=== PATIENT | male | born 1960 | race Caucasian/White ===

== ENCOUNTER 2020-06-12 18:28 | Inpatient (IN) | payer OTHER ==
[2020-06-12] MEDS ORDERED: SODIUM CHLORIDE 0.9% 1,000 ML IV STA ×2 (18:53→19:50)
--- NOTE | 2020-06-12 19:05 | ED ---
SOB HPI - General Chief Complaint: Shortness of Breath Stated Complaint: LILIA Time Seen by Provider: 06/12/20 18:41 Source: patient, RN notes reviewed Mode of arrival: ambulatory Limitations: no limitations - History of Present Illness Initial Comments: This is a 60-year-old male who is a smoker who was sent in by his doctor for evaluation for a possible right lung mass. He apparently had a CAT scan done in November of this year that showed evidence of a possible right lung mass. He was seen by his doctor last month and instructed to come in but now presents. He complains shortness breath exertional dyspnea sometime with a cough no overt fevers chills or sweats he does use an inhaler/nebulizer times. He states he had multiple family issues a Different getting worked up and also the patient didn't make interrupted things. MD Complaint: shortness of breath - Related Data Allergies Allergy/AdvReac Type Severity Reaction Status Date / Time No Known Allergies Allergy Verified 06/12/20 18:35 Review of Systems ROS Statement: Those systems with pertinent positive or pertinent negative responses have been documented in the HPI. ROS Other: All systems not noted in ROS Statement are negative. Past Medical History Past Medical History: Hyperlipidemia, Hypertension Additional Past Medical History / Comment(s): DDD History of Any Multi-Drug Resistant Organisms: None Reported Past Surgical History: Orthopedic Surgery Past Psychological History: No Psychological Hx Reported Smoking Status: Current every day smoker Past Alcohol Use History: None Reported Past Drug Use History: None Reported General Exam - General Exam Comments Initial Comments: This is a well-developed asthenic appearing male who is awake alert oriented 3 Limitations: no limitations General appearance: alert Head exam: Present: atraumatic, normocephalic, normal inspection Eye exam: Present: normal appearance, PERRL, EOMI. Absent: scleral icterus, conjunctival injection, periorbital swelling ENT exam: Present: normal exam, mucous membranes moist Neck exam: Present: normal inspection, other (No stridor JVD or bruits). Absent: tenderness, meningismus, lymphadenopathy Respiratory exam: Present: wheezes, decreased breath sounds (Decreased breath sounds especially on the right). Absent: respiratory distress, rales, rhonchi, stridor Cardiovascular Exam: Present: normal rhythm, tachycardia, normal heart sounds. Absent: systolic murmur, diastolic murmur, rubs, gallop, clicks GI/Abdominal exam: Present: soft, normal bowel sounds. Absent: distended, tenderness, guarding, rebound, rigid Extremities exam: Present: normal inspection, full ROM, normal capillary refill. Absent: tenderness, pedal edema, joint swelling, calf tenderness Back exam: Present: normal inspection Neurological exam: Present: alert, oriented X3, CN II-XII intact Psychiatric exam: Present: normal affect, normal mood Skin exam: Present: warm, dry, intact, normal color. Absent: rash Course Vital Signs 06/12/20 06/12/20 06/12/20 18:30 18:51 18:57 Temperature 98.1 F Pulse Rate 110 H 107 H Respiratory 18 20 20 Rate Blood Pressure 139/85 131/94 O2 Sat by Pulse 94 L 95 Oximetry Medical Decision Making - Medical Decision Making I did discuss findings with patient will be admitted case is discussed with Dr. Graves service pulmonary medicine will be consulted. Patient is not any fevers chills or sweats he does have a mildly elevated white blood cell count likely reactive. - Lab Data Result diagrams: 06/12/20 18:56 06/12/20 18:56 Lab Results 06/12/20 06/12/20 Range/Units 18:56 18:56 WBC 13.3 H (3.8-10.6) k/uL RBC 5.01 (4.30-5.90) m/uL Hgb 15.5 (13.0-17.5) gm/dL Hct 49.0 (39.0-53.0) % MCV 97.6 (80.0-100.0) fL MCH 30.9 (25.0-35.0) pg MCHC 31.7 (31.0-37.0) g/dL RDW 12.8 (11.5-15.5) % Plt Count 534 H (150-450) k/uL Neutrophils % 72 % Lymphocytes % 18 % Monocytes % 5 % Eosinophils % 3 % Basophils % 1 % Neutrophils # 9.6 H (1.3-7.7) k/uL Lymphocytes # 2.3 (1.0-4.8) k/uL Monocytes # 0.7 (0-1.0) k/uL Eosinophils # 0.5 (0-0.7) k/uL Basophils # 0.1 (0-0.2) k/uL Sodium 132 L (137-145) mmol/L Potassium 3.4 L (3.5-5.1) mmol/L Chloride 97 L (98-107) mmol/L Carbon Dioxide 21 L (22-30) mmol/L Anion Gap 14 mmol/L BUN 4 L (9-20) mg/dL Creatinine 0.55 L (0.66-1.25) mg/dL Est GFR (CKD-EPI)AfAm >90 (>60 ml/min/1.73 sqM) Est GFR (CKD-EPI)NonAf >90 (>60 ml/min/1.73 sqM) Glucose 132 H (74-99) mg/dL Calcium 9.5 (8.4-10.2) mg/dL Magnesium 2.1 (1.6-2.3) mg/dL Total Bilirubin 0.3 (0.2-1.3) mg/dL AST 35 (17-59) U/L ALT 13 (4-49) U/L Alkaline Phosphatase 106 (38-126) U/L Creatine Kinase 33 L (55-170) U/L Total Protein 6.8 (6.3-8.2) g/dL Albumin 3.6 (3.5-5.0) g/dL - EKG Data -: EKG Interpreted by Me EKG shows normal: sinus rhythm EKG Comments: Sinus rhythm of 97 132 QRS duration 148 QT since QTC 388/492 by atrial enlargement right bundle- branch block left anterior fascicular block pattern - Radiology Data Radiology results: image reviewed (I did review the imaging evidence of right hilar mass.) Disposition 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
[2020-06-12 19:24] LABS: Basophils # (A) 0.1 k/uL (0-0.2); Basophils % (A) 1 %; Eosinophils # (A) 0.5 k/uL (0-0.7); Eosinophils % (A) 3 %; HGB 15.5 gm/dL (13.0-17.5); Lymphocytes # (A) 2.3 k/uL (1.0-4.8); Lymphocytes % (A) 18 %; MCH 30.9 pg (25.0-35.0); MCHC 31.7 g/dL (31.0-37.0); MCV 97.6 fL (80.0-100.0); Mean Platelet Volume 6.8; Monocytes # (A) 0.7 k/uL (0-1.0); Monocytes % (A) 5 %; Neutrophils # (A) 9.6 k/uL (1.3-7.7); Neutrophils % (A) 72 %; Platelet Count 534 k/uL (150-450); RBC 5.01 m/uL (4.30-5.90); RDW 12.8 % (11.5-15.5); WBC 13.3 k/uL (3.8-10.6)
--- NOTE | 2020-06-12 19:32 | XR ---
EXAMINATION TYPE: XR chest 2V DATE OF EXAM: 06/12/2020 COMPARISON: None INDICATION: Difficulty breathing TECHNIQUE: Frontal and lateral views of the chest are obtained. FINDINGS: The heart size is normal. The pulmonary vasculature is normal. No suspicious peripheral consolidations are evident. There may be some infiltrate in the right upper lobe and suprahilar region. However, this could be related to mass as well as infection. There is a right suprahilar and mediastinal mass with extension towards the right apex. Underlying ma ss is suspected. Additional workup is recommended. IMPRESSION: 1. Findings suggestive for a right superior mediastinal mass. Additional workup with contrast CT is r ecommended.
[2020-06-12 19:33] LABS: ALT 13 U/L (4-49); AST 35 U/L (17-59); African American GFR (CKD) >90 (>60 ml/min/1.73 sqM); Albumin 3.6 g/dL (3.5-5.0); Alkaline Phosphatase 106 U/L (38-126); Anion Gap 14 mmol/L; Blood Urea Nitrogen 4 mg/dL (9-20); Calcium 9.5 mg/dL (8.4-10.2); Carbon Dioxide 21 mmol/L (22-30); Chloride 97 mmol/L (98-107); Creatine Kinase 33 U/L (55-170); Glucose 132 mg/dL (74-99); Magnesium 2.1 mg/dL (1.6-2.3); Non-African American GFR(CKD) >90 (>60 ml/min/1.73 sqM); Potassium 3.4 mmol/L (3.5-5.1); Sodium 132 mmol/L (137-145); Total Bilirubin 0.3 mg/dL (0.2-1.3); Total Protein 6.8 g/dL (6.3-8.2)
[2020-06-12 19:37] LABS: Partial Thromboplastin Time 27.2 sec (22.0-30.0); Prothrombin Time 10.5 sec (9.0-12.0)
[2020-06-12] MEDS ORDERED: NICOTINE 21MG/24HR PATCH TRANSDERM STA (19:37)
[2020-06-12 19:44] LABS: D-Dimer 0.88 mg/L FEU (<0.60)
--- NOTE | 2020-06-12 20:28 | CT ---
CT CHEST FOR PULMONARY EMBOLISM. EXAMINATION TYPE: CT angio chest DATE OF EXAM: 06/12/2020 INDICATION: Elevated d-dimer and difficulty breathing. CT DLP: 411.5 mGycm, Automated exposure control for dose reduction was used. CONTRAST: Patient injected with 60ml mL of Isovue 370. COMPARISON: Chest x-ray 06/12/2020 TECHNIQUE: CT of the chest is performed on a spiral scan at 2 mm thick sections. Study is performed with intravenous contrast timed for evaluation for pulmonary embolism. This will limit additional po rtions of the evaluation. 3-D MIP images reconstructed by the technologist are reviewed on the compu ter in the coronal and sagittal planes. FINDINGS: No persistent filling defects are evident to suggest an acute pulmonary embolism. No mediastinal or hilar adenopathy enlarged by CT criteria is evident. The ascending aorta diameter at the level of the main pulmonary artery is 3.2 cm. The main pulmonary artery diameter at the bifur cation is 2.9 cm. There is a mass along the superior right mediastinal border with extension into the mediastinum. This is causing at least partial obstruction of the airway. A patent airway however cannot be traced on t hese images into the right lung through the right main bronchus. Complete atelectasis of the right evin ng however is not evident at this time. Mass measurement is difficult given atelectasis and difficult y from the mediastinum. Best estimate on the coronal plane images is 11.6 x [address] sections through the upper abdomen are unremarkable. IMPRESSIONS: 1. Large mediastinal mass appears to be obstructing the right main bronchus and may have partial enca sement of the right main pulmonary artery. 2. No acute pulmonary embolism.
[2020-06-12] MEDS: SODIUM CHLORIDE 0.9% 1,000 ML IV SCH (20:35)
[2020-06-12] MEDS: IPRATROPIUM-ALBUTEROL 3 ML NEB INHALATION SCH (20:42)
[2020-06-12] MEDS ORDERED: POTASSIUM CHLORIDE ER 20 MEQ TAB.ER PO STA (23:13)
[2020-06-13] MEDS: IPRATROPIUM-ALBUTEROL 3 ML NEB INHALATION SCH ×7 (03:49→23:09)
[2020-06-13] MEDS: SODIUM CHLORIDE 0.9% 1,000 ML IV SCH ×2 (05:17→16:15)
[2020-06-13 08:09] LABS: Basophils # (A) 0.1 k/uL (0-0.2); Basophils % (A) 1 %; Eosinophils # (A) 0.4 k/uL (0-0.7); Eosinophils % (A) 4 %; HGB 15.2 gm/dL (13.0-17.5); Hypochromasia Slight; Lymphocytes # (A) 1.7 k/uL (1.0-4.8); Lymphocytes % (A) 14 %; MCH 32.3 pg (25.0-35.0); MCHC 32.4 g/dL (31.0-37.0); MCV 99.9 fL (80.0-100.0); Mean Platelet Volume 6.5; Monocytes # (A) 0.6 k/uL (0-1.0); Monocytes % (A) 5 %; Neutrophils % (A) 76 %; Platelet Count 511 k/uL (150-450); RDW 12.7 % (11.5-15.5); WBC 11.8 k/uL (3.8-10.6)
[2020-06-13 08:15] LABS: African American GFR (CKD) >90 (>60 ml/min/1.73 sqM); Anion Gap 6 mmol/L; Blood Urea Nitrogen 3 mg/dL (9-20); Calcium 8.8 mg/dL (8.4-10.2); Carbon Dioxide 25 mmol/L (22-30); Chloride 105 mmol/L (98-107); Glucose 107 mg/dL (74-99); Non-African American GFR(CKD) >90 (>60 ml/min/1.73 sqM); Potassium 4.5 mmol/L (3.5-5.1); Sodium 136 mmol/L (137-145)
--- NOTE | 2020-06-13 11:03 | P.CNPUL ---
History of Present Illness Consult date: 06/12/20 Reason for consult: lung mass, abnormal CXR/CT, other (Hemoptysis) History of present illness: This is a 60-year-old male who is a smoker who was sent in by his doctor for evaluation for a possible right lung mass. He is a chronic smoker. He a pparently had a CAT scan done in November of this year that showed evidence of a possible right lung mass. He was seen by his doctor last month and instructed to come. The patient did not FU and he did not seek any medical workup back then. He subsequnetly had some hemoptysis and he also complained exertional dyspnea. He has no fevers chills or sweats or sweats. No exposure to tuberculosis. He has no significant constitutional symptoms. No reported chest pain. A CT of the chest was done in the ED and it showed a RUL mass, the dimensions are hard to get as the there is also evidence of RUL atelectasis (partial). The mass in th RUL/suprahilar area is extending to the right main stem bronchus without causing any atelectasis of the right middle and the right lower lobes. The RUL upper lobe bronchus seems to be occluded with the mass. The mass is causing partial encasement if the pulmonary artery. There is no mediastinal or hilar adenopathy. Review of Systems Constitutional: Denies chills, Denies fever Eyes: denies as per HPI, denies blurred vision, denies bulging eye, denies decreased vision, denies diplopia, denies discharge, denies dry eye, denies irritation, denies itching, denies pain, denies photophobia, denies loss of peripheral vision, denies loss of vision, denies tunnel vision/blind spots Ears: deny: decreased hearing, ear discharge, earache, tinnitus Ears, nose, mouth and throat: Reports as per HPI Breasts: absent: as per HPI, gynecomastia Cardiovascular: Reports as per HPI, Reports dyspnea on exertion Respiratory: Reports cough, Reports dyspnea, Reports hemoptysis Gastrointestinal: Reports as per HPI Genitourinary: Reports as per HPI Musculoskeletal: Reports as per HPI Musculoskeletal: absent: ankle pain, ankle stiffness, ankle swelling Integumentary: Reports as per HPI Neurological: Reports as per HPI Psychiatric: Reports as per HPI Endocrine: Reports as per HPI Hematologic/Lymphatic: Reports as per HPI Allergic/Immunologic: Reports as per HPI Past Medical History Past Medical History: Hyperlipidemia, Hypertension Additional Past Medical History / Comment(s): DDD History of Any Multi-Drug Resistant Organisms: None Reported Past Surgical History: Orthopedic Surgery Past Psychological History: No Psychological Hx Reported Smoking Status: Current every day smoker Past Alcohol Use History: None Reported Past Drug Use History: None Reported - Past Family History Father Family Medical History: Diabetes Mellitus Mother Family Medical History: CVA/TIA, Diabetes Mellitus Additional Family Medical History / Comment(s): at 82 Brother(s) Family Medical History: Coronary Artery Disease (CAD), Myocardial Infarction (AR) Additional Family Medical History / Comment(s): 2015 Medications and Allergies Home Medications Medication Instructions Recorded Confirmed Type Albuterol Nebulized [Ventolin 2.5 mg INHALATION RT-QID PRN 06/12/20 06/12/20 History Nebulized] Hydrocodone/Acetaminophen [Hilton 1 tab PO Q6H PRN 06/12/20 06/12/20 History 10-325] Ibuprofen/Pseudoephedrine HCl 1 tab PO Q5H PRN 06/12/20 06/12/20 History [Advil Cold & Sinus Caplet] Omeprazole 20 mg PO DAILY 06/12/20 06/12/20 History Allergies Allergy/AdvReac Type Severity Reaction Status Date / Time No Known Allergies Allergy Verified 06/12/20 19:45 Physical Exam Vitals: Vital Signs Temp Pulse Resp BP Pulse Ox 06/12/20 20:44 97 06/12/20 20:43 80 14 06/12/20 20:33 98.5 F 85 18 116/78 96 06/12/20 18:57 107 H 20 131/94 95 06/12/20 18:51 20 06/12/20 18:30 98.1 F 110 H 18 139/85 94 L Intake and Output 06/12/20 06/12/20 06/12/20 06:59 14:59 22:59 Other: Weight 82.554 kg Patient is lying in the bed appears to be in acute distress due to pain, awake alert and oriented. HEENT: Normocephalic. Neck is supple. Pupils reactive. Nostrils clear. Oral cavity is moist. Ears reveal no drainage. There is some skin thickening and scarring along the left lateral chest area at the site of a previous radiation therapy. No palpable masses. Neck reveals no JVD, carotid bruits, or thyromegaly. CHEST EXAMINATION: Trachea is central. aymmetrical expansion and the patient has few scattered rhonchi CARDIAC: Normal S1, S2 with no gallops. No murmurs ABDOMEN: Soft. Non tender. Bowel sounds present. Distended. No abdominal bruits. Extremities: There is swelling of the right upper extremity compared to the left. There is some limited digital clubbing. No cyanosis. No edema. Neurologically awake, alert, oriented x2-3 with well-coordinated movements. No focal deficits noted Skin: No rash or skin lesions. Psychiatric: Coperative. Could not be sensory completely Musculoskeletal: No joint swelling or deformity. Normal range of motion. Results - Laboratory Findings CBC and BMP: 06/13/20 07:41 06/13/20 07:41 PT/INR, D-dimer PT 10.5 sec (9.0-12.0) 06/12/20 18:56 INR 1.0 (<1.2) 06/12/20 18:56 D-Dimer 0.88 mg/L FEU (<0.60) H 06/12/20 18:56 Abnormal lab findings: Abnormal Labs 06/12/20 06/12/20 06/12/20 18:56 18:56 18:56 WBC 13.3 H Plt Count 534 H Neutrophils # 9.6 H D-Dimer 0.88 H Sodium 132 L Potassium 3.4 L Chloride 97 L Carbon Dioxide 21 L BUN 4 L Creatinine 0.55 L Glucose 132 H Plasma Lactic Acid John Creatine Kinase 33 L 06/12/20 18:56 WBC Plt Count Neutrophils # D-Dimer Sodium Potassium Chloride Carbon Dioxide BUN Creatinine Glucose Plasma Lactic Acid John 3.8 H* Creatine Kinase - Diagnostic Findings Chest x-ray: image reviewed CT scan - chest: image reviewed Assessment and Plan Plan: 1 Right suprahilar/ RUL mass causing obstruction of the RUL bronchus and partial atelectasis of the right upper lobe. 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 Plan Discussed the findings with the patient. Obviously, the patient will need to have a bronchoscopy for an airway inspection and biopsy of the RUL mass for a definitive diagnosis. The procedure was explained to the patient and the patient will be kept NPO after midnight and will be scheduled to have the bronchoscopy in am. Continue IVF and monitor the lactic acid level. Will follow
[2020-06-13] MEDS ORDERED: ROCURONIUM BROMIDE 10 MG/ML 5 ML VIAL IV ONE (14:09)
[2020-06-13] MEDS ORDERED: KETAMINE 10 MG/ML 20 ML VIAL ONE (14:09)
[2020-06-13] MEDS ORDERED: PROPOFOL 10 MG/ML 20 ML VIAL IV ONE (14:09)
[2020-06-13] MEDS ORDERED: MIDAZOLAM 2 MG/2 ML VIAL ONE (14:09)
[2020-06-13] MEDS ORDERED: GLYCOPYRROLATE 0.2 MG/ML 2 ML VIAL ONE (14:09)
[2020-06-13] MEDS ORDERED: fentaNYL (PF) 50 MCG/ML 2 ML AMP ONE (14:09)
[2020-06-13] MEDS ORDERED: IV FLUID CONTINUATION 1,000 ML IV ONE ×2 (14:11)
[2020-06-13] MEDS ORDERED: LIDOCAINE 2% INJ 20 MG/ML INTRATRACH ONE (14:43)
[2020-06-13] MEDS ORDERED: SODIUM CHLORIDE 0.9% 500 ML 500 ML IV ONE (14:46)
--- NOTE | 2020-06-13 14:58 | P.PN ---
Subjective Progress Note Date: 06/13/20 On today's evaluation of 06/13/2020, the patient's, comfortable likely distress. The patient has no specific complaints. No further episodes of hemoptysis. He is nothing by mouth after midnight and the patient is going to have the bronchoscopy today. I extended to the procedure again. I reviewed the CAT scan images. Hemodynamically stable. Limited cough. No significant sputum production. No chest pain. No symptoms of shortness of breath. Objective - Vital Signs Vital signs: Vital Signs Temp 99.9 F H 06/13/20 13:23 Pulse 105 H 06/13/20 13:23 Resp 20 06/13/20 13:23 BP 130/90 06/13/20 13:23 Pulse Ox 92 L 06/13/20 13:23 Intake & Output 06/12/20 06/13/20 06/13/20 18:59 06:59 18:59 Intake Total 550 Balance 550 Weight 82.554 kg 82.554 kg Intake: IV 550 Other: Voiding Method Toilet Toilet - Exam The patient appeared well nourished and normally developed. Vital signs as documented. Head exam is unremarkable. No scleral icterus or corneal arcus noted. Neck is without jugular venous distension, thyromegaly, or carotid bruits. The patient has very poor dentition. Mucous membranes are moist. Carotid upstrokes are brisk bilaterally. Lungs are diminished in the lung bases bilaterally more so on the right compared to left. Few scattered expiratory wheezes also appreciated.. Cardiac exam reveals the PMI to be normally sized and situated. Rhythm is regular. First and second heart sounds normal. No murmurs, rubs or gallops. Abdominal exam reveals normal bowel sounds, no masses, no organomegaly and no aortic enlargement. Extremities are nonedematous and both femoral and pedal pulses are normal.Examination of the skin revealed no evidence of significant rashes, suspicious appearing nevi or other concerning lesions. Neurologically the patient is awake and alert and there is no focal neurological deficit. - Labs CBC & Chem 7: 06/13/20 07:41 06/13/20 07:41 Labs: Abnormal Lab Results - Last 24 Hours (Table) 06/12/20 06/12/20 06/12/20 Range/Units 18:56 18:56 18:56 WBC 13.3 H (3.8-10.6) k/uL Plt Count 534 H (150-450) k/uL Neutrophils # 9.6 H (1.3-7.7) k/uL D-Dimer 0.88 H (<0.60) mg/L FEU Sodium 132 L (137-145) mmol/L Potassium 3.4 L (3.5-5.1) mmol/L Chloride 97 L (98-107) mmol/L Carbon Dioxide 21 L (22-30) mmol/L BUN 4 L (9-20) mg/dL Creatinine 0.55 L (0.66-1.25) mg/dL Glucose 132 H (74-99) mg/dL Plasma Lactic Acid John (0.7-2.0) mmol/L Creatine Kinase 33 L (55-170) U/L 06/12/20 06/12/20 06/13/20 Range/Units 18:56 22:31 07:41 WBC 11.8 H (3.8-10.6) k/uL Plt Count 511 H (150-450) k/uL Neutrophils # 9.0 H (1.3-7.7) k/uL D-Dimer (<0.60) mg/L FEU Sodium (137-145) mmol/L Potassium (3.5-5.1) mmol/L Chloride (98-107) mmol/L Carbon Dioxide (22-30) mmol/L BUN (9-20) mg/dL Creatinine (0.66-1.25) mg/dL Glucose (74-99) mg/dL Plasma Lactic Acid John 3.8 H* 2.3 H* (0.7-2.0) mmol/L Creatine Kinase (55-170) U/L 06/13/20 Range/Units 07:41 WBC (3.8-10.6) k/uL Plt Count (150-450) k/uL Neutrophils # (1.3-7.7) k/uL D-Dimer (<0.60) mg/L FEU Sodium 136 L (137-145) mmol/L Potassium (3.5-5.1) mmol/L Chloride (98-107) mmol/L Carbon Dioxide (22-30) mmol/L BUN 3 L (9-20) mg/dL Creatinine 0.53 L (0.66-1.25) mg/dL Glucose 107 H (74-99) mg/dL Plasma Lactic Acid John (0.7-2.0) mmol/L Creatine Kinase (55-170) U/L Assessment and Plan Plan: 1 Right suprahilar/ RUL mass causing obstruction of the RUL bronchus and partial atelectasis of the right upper lobe. 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 Plan Proceed with bronchoscopy, airway inspection and endobronchial biopsies. Consult oncology. Consult radiation oncology.. Further recommendations are to follow based on the results of the biopsy.
--- NOTE | 2020-06-13 15:04 | P.PCN ---
Date of Procedure: 06/13/20 Preoperative Diagnosis: Right upper lobe/suprahilar mass Postoperative Diagnosis: Right upper lobe mass causing complete obstruction of the right upper lobe bronchus and invading the right mainstem bronchus causing some 80-90% narrowing of the right mainstem bronchus. Procedure(s) Performed: Flexible bronchoscopy, endobronchial biopsies, endobronchial debulking of the right mainstem tumor Anesthesia: ASHLEIGH Surgeon: Kermit Sandoval Estimated Blood Loss (ml): 10 Pathology: other Condition: stable Disposition: floor Operative Findings: This procedure was done in the endoscopy suite. Initially the procedure was going to be done under conscious sedation. Nevertheless, I decided to proceed with intubation and general anesthesia to secure an airway as I suspected that we are going to encounter some oxygen desaturation at time of this procedure. As such, the patient was induced and following that intubated and placed on mechanical ventilator by anesthesia group. The patient was intubated by #7.5 orotracheal tube. An adapter was attached to the orotracheal tube and following that the flexible bronchoscope was reduced into the orotracheal tube into the left lower trachea. There was some of the secretions in the distal trachea that were minimal and there were no blood clots. Sanaz was sharp in the midline. The bronchoscope was then moved to the right side and immediately a large necrotic tumor was seen to cause more than 95% obstruction of the distal right mainstem bronchus. Origin of the tumor was most likely the right upper lobe as the right upper lobe bronchus could not be identified. There was a slight opening in the medial wall of the right mainstem bronchus and I was able to pass the bronchoscope into the distal bronchus intermedius and I was able to visualize the right upper lobe and the right lower lobe. There was some purulent secretions distally which I was able to suction out without any major difficulties. At this point, using a forceps, multiple endobronchial biopsies of the right mainstem bronchus tumor was done. At the completion of the procedure, multiple pieces the tumor was debulked and I was able to achieve at least a 20-25% patency of the right mainstem bronchus. The airway still was significantly narrowed but endobronchial tumor. He is in remission the left side including left mainstem bronchus and left upper lobe and left lower bronchi was within normal limits. At this point, therapeutic it was suctioning was done and the bronchoscope was removedand the bleeding was encountered. The tumor surface was vascular and amount of bleeding from the tumor surface with minimal at this point in time. The patient was left for anesthesia to be extubated and transferred back to recovery in stable condition. Biopsies will be sent for analysis. Meanwhile, I'm going to put an immediate consultation for medical o ncology and radiation oncology regarding the findings and the patient may benefit from immediate radiation therapy due to impending right mainstem obstruction due to an endobronchial tumor in the right upper lobe.
[2020-06-13] MEDS ORDERED: ALBUTEROL INHALER 60 PUFF/8 GM INHALER (MHU) INHALATION ONE (15:18)
[2020-06-13] MEDS ORDERED: LACTATED RINGERS 1,000 ML IV ONE (15:26)
[2020-06-13] MEDS: ACETAMINOPHEN TAB 325 MG TAB PO PRN (16:19)
[2020-06-13] MEDS: HYDROcodone/APAP 10-325MG 1 EACH TAB PO PRN (18:29)
--- NOTE | 2020-06-13 23:24 | P.HPIM ---
History of Present Illness H&P Date: 06/13/20 Chief Complaint: Shortness of breath Patient is a 60-year-old male with a known history of smoking, degenerative disc disease, hyperlipidemia and history of marijuana use as well as daily alcohol use came to ER with the complaints of shortness of breath, exertional dyspnea and cough which is getting for the past few months. Patient. Blood-tinged sputum few days back. Patient contacted his primary care physician who recommended him to go to ER. Patient was being worked up for lung mass sometime in November where he had a CAT scan done showed evidence of possible right lung mass. Due to COVID-19 management patient states he is unable to follow-up with his physician and presented to ER due to worsening symptoms. Denied any complaints of chest pain. No nausea vomiting or abdominal pain. Patient states that she did have decreased appetite. CTA chest in the ER showed large mediastinal mass appears to be obstructing the right main bronchus and may have partial encasement of the right main pulmonary artery. No acute pulmonary embolism. Chest x-ray showed findings suggestive for a right superior mediastinal mass. EKG showed normal sinus rhythm. Laboratory data showed WBC 13.3, hemoglobin 14.4 and platelets 534 D-dimer is 0.88 Sodium 132, potassium 3.4, chloride 97 and bicarb is 21 BUN 4 and creatinine 0.55 lactic acid 3.8 on admission proBNP 41 Troponin x1- Coronavirus PCR negative. Past Medical History: Hyperlipidemia Additional Past Medical History / Comment(s): DDD neck, carpal tunnel History of Any Multi-Drug Resistant Organisms: None Reported Past Surgical History: Orthopedic Surgery Additional Past Surgical History / Comment(s): left ankle surgery 30 years ago. Past Anesthesia/Blood Transfusion Reactions: No Reported Reaction Past Psychological History: No Psychological Hx Reported Smoking Status: Current every day smoker Past Alcohol Use History: Abuse, Daily Additional Past Alcohol Use History / Comment(s): drinks 6-8beer daily or 3-4 vodka mixed drinks. depends on the day. smoke 1 pack of cigarettes day. cut back from 2 packs day Past Drug Use History: Marijuana Additional Drug Use History / Comment(s): past use of marijuana This is a 60-year-old male who is a smoker who was sent in by his doctor for evaluation for a possible right lung mass. He apparently had a CAT scan done in November of this year that showed evidence of a possible right lung mass. He was seen by his doctor last month and instructed to come in but now presents. He complains shortness breath exertional dyspnea sometime with a cough no overt fevers chills or sweats he does use an inhaler/nebulizer times. He states he had multiple family issues a Different getting worked up and also the patient d idn't make interrupted things. MD Complaint: shortness of breath Review of Systems Constitutional: Patient denies any fever or chills . Generalized weakness and fatigue. Loss of appetite.. Abdomen: Patient denied nausea vomiting and diarrhea and abdominal pain. Cardiovascular: Patient denies any chest pain or short of breath no palpitations. Respiratory: Cough with whitish sputum production. Positive shortness of breath Neurologic: Patient denied any numbness or tingling headache. Musculoskeletal: Patient denies any complaints of joint swelling or deformity. Skin: Negative Psychiatric: Negative Endocrine: No heat or cold intolerance. No recent weight gain. Genitourinary: No dysuria or hematuria. All other 14 point ROS negative except the above Past Medical History Past Medical History: Hyperlipidemia Additional Past Medical History / Comment(s): DDD neck, carpal tunnel History of Any Multi-Drug Resistant Organisms: None Reported Past Surgical History: Orthopedic Surgery Additional Past Surgical History / Comment(s): left ankle surgery 30 years ago. Past Anesthesia/Blood Transfusion Reactions: No Reported Reaction Past Psychological History: No Psychological Hx Reported Smoking Status: Current every day smoker Past Alcohol Use History: Abuse, Daily Additional Past Alcohol Use History / Comment(s): drinks 6-8beer daily or 3-4 vodka mixed drinks. depends on the day. smoke 1 pack of cigarettes day. cut back from 2 packs day Past Drug Use History: Marijuana Additional Drug Use History / Comment(s): past use of marijuana - Past Family History Father Family Medical History: Diabetes Mellitus Mother Family Medical History: CVA/TIA, Diabetes Mellitus Additional Family Medical History / Comment(s): at 82 Brother(s) Family Medical History: Coronary Artery Disease (CAD), Myocardial Infarction ([place]) Additional Family Medical History / Comment(s): 2015 Medications and Allergies Home Medications Medication Instructions Recorded Confirmed Type Albuterol Nebulized [Ventolin 2.5 mg INHALATION RT-QID PRN 06/12/20 06/12/20 History Nebulized] Hydrocodone/Acetaminophen [[facility] 1 tab PO Q6H PRN 06/12/20 06/12/20 History 10-325] Ibuprofen/Pseudoephedrine HCl 1 tab PO Q5H PRN 06/12/20 06/12/20 History [Advil Cold & Sinus Caplet] Omeprazole 20 mg PO DAILY 06/12/20 06/12/20 History Allergies Allergy/AdvReac Type Severity Reaction Status Date / Time No Known Allergies Allergy Verified 06/12/20 19:45 Physical Exam Vitals: Vital Signs Temp Pulse Pulse Resp BP BP Pulse Ox 06/13/20 05:31 99.9 F H 96 18 132/63 94 L 06/13/20 04:00 84 06/13/20 03:49 88 06/12/20 21:51 97.3 F L 86 18 127/83 06/12/20 20:51 81 15 06/12/20 20:44 97 06/12/20 20:43 80 14 06/12/20 20:33 98.5 F 85 18 116/78 96 06/12/20 18:57 107 H 20 131/94 95 06/12/20 18:51 20 06/12/20 18:30 98.1 F 110 H 18 139/85 94 L Intake and Output 06/12/20 06/13/20 06/13/20 22:59 06:59 14:59 Other: Voiding Method Toilet Toilet Weight 82.554 kg PHYSICAL EXAMINATION: Patient is lying in the bed comfortably, no acute distress, awake alert and oriented.. HEENT: Normocephalic. Neck is supple. Pupils reactive. Nostrils clear. Oral cavity is moist. Ears reveal no drainage. Neck reveals no JVD, carotid bruits, or thyromegaly. CHEST EXAMINATION: Trachea is central. Symmetrical expansion. Lung reyez clear to auscultation and percussion. CARDIAC: Normal S1, S2 with no gallops. No murmurs ABDOMEN: Soft. Bowel sounds normal. No organomegaly. No abdominal bruits. Extremities: reveal no edema. No clubbing or cyanosis Neurologically awake, alert, oriented x3 with well-coordinated movements. No focal deficits noted Skin: No rash or skin lesions. Psychiatric: Coperative. Nonsuicidal Musculoskeletal: No joint swelling or deformity. Normal range of motion. Results CBC & Chem 7: 06/13/20 07:41 06/13/20 07:41 Labs: Abnormal Lab Results - Last 24 Hours (Table) 06/12/20 06/12/20 06/12/20 Range/Units 18:56 18:56 18:56 WBC 13.3 H (3.8-10.6) k/uL Plt Count 534 H (150-450) k/uL Neutrophils # 9.6 H (1.3-7.7) k/uL D-Dimer 0.88 H (<0.60) mg/L FEU Sodium 132 L (137-145) mmol/L Potassium 3.4 L (3.5-5.1) mmol/L Chloride 97 L (98-107) mmol/L Carbon Dioxide 21 L (22-30) mmol/L BUN 4 L (9-20) mg/dL Creatinine 0.55 L (0.66-1.25) mg/dL Glucose 132 H (74-99) mg/dL Plasma Lactic Acid John (0.7-2.0) mmol/L Creatine Kinase 33 L (55-170) U/L 06/12/20 06/12/20 06/13/20 Range/Units 18:56 22:31 07:41 WBC 11.8 H (3.8-10.6) k/uL Plt Count 511 H (150-450) k/uL Neutrophils # 9.0 H (1.3-7.7) k/uL D-Dimer (<0.60) mg/L FEU Sodium (137-145) mmol/L Potassium (3.5-5.1) mmol/L Chloride (98-107) mmol/L Carbon Dioxide (22-30) mmol/L BUN (9-20) mg/dL Creatinine (0.66-1.25) mg/dL Glucose (74-99) mg/dL Plasma Lactic Acid John 3.8 H* 2.3 H* (0.7-2.0) mmol/L Creatine Kinase (55-170) U/L 06/13/20 Range/Units 07:41 WBC (3.8-10.6) k/uL Plt Count (150-450) k/uL Neutrophils # (1.3-7.7) k/uL D-Dimer (<0.60) mg/L FEU Sodium 136 L (137-145) mmol/L Potassium (3.5-5.1) mmol/L Chloride (98-107) mmol/L Carbon Dioxide (22-30) mmol/L BUN 3 L (9-20) mg/dL Creatinine 0.53 L (0.66-1.25) mg/dL Glucose 107 H (74-99) mg/dL Plasma Lactic Acid John (0.7-2.0) mmol/L Creatine Kinase (55-170) U/L Thrombosis Risk Factor Assmnt - DVT/VTE Prophylaxis DVT/VTE Prophylaxis: Pharmacologic Prophylaxis ordered - Choose All That Apply Any of the Below Risk Factors Present?: Yes Each Factor Represents 1 point: Obesity (BMI >25) Other Risk Factors: Yes Each Risk Factor Represents 2 Points: Age 61-74 years, Malignancy Other congenital or acquired thrombophilia - If yes, enter type in comment: No Thrombosis Risk Factor Assessment Total Risk Factor Score: 5 Thrombosis Risk Factor Assessment Level: High Risk Assessment and Plan Assessment: Lung mass. CT showed large mediastinal mass appears to be obstructing the right main bronchus. Ongoing Nicotine addiction. Hypovolemic hyponatremia Hypokalemia Lactic acidosis Elevated d-dimer level. CTA negative for pulmonary embolism. Daily alcohol use Degenerative disc disease and neck pain Hyperlipidemia History of marijuana use DVT prophylaxis Plan: Patient will be continued breathing treatments and pain management. Pulmonary was consulted and is planning for bronchoscopy and biopsy. Continue with oxygen therapy as needed. Smoking cessation has been counseled extensively. Time with Patient: Greater than 30
[2020-06-13] MEDS: HEPARIN SODIUM,PORCINE 5,000 UNIT/ML 1 ML VIAL SQ SCH (23:49)
[2020-06-14] MEDS: HYDROcodone/APAP 10-325MG 1 EACH TAB PO PRN ×4 (01:47→20:37)
[2020-06-14] MEDS: SODIUM CHLORIDE 0.9% 1,000 ML IV SCH ×2 (01:48→12:04)
[2020-06-14] MEDS: IPRATROPIUM-ALBUTEROL 3 ML NEB INHALATION SCH ×6 (04:11→23:59)
[2020-06-14] MEDS: HEPARIN SODIUM,PORCINE 5,000 UNIT/ML 1 ML VIAL SQ SCH ×2 (07:40→15:22)
[2020-06-14] MEDS: NICOTINE 14MG/24HR PATCH TRANSDERM SCH (09:09)
[2020-06-14] MEDS: PANTOPRAZOLE 40 MG TABLET PO SCH (12:04)
--- NOTE | 2020-06-14 12:50 | P.PN ---
Subjective Progress Note Date: 06/14/20 Principal diagnosis: Right suprahilar/right upper lobe mass causing obstruction of the right upper lobe bronchus and partial atelectasis of the right upper lobe, status post bronchoscopy and endobronchial biopsy This is a 60-year-old male who is a smoker who was sent in by his doctor for evaluation for a possible right lung mass. He is a chronic smoker. He apparently had a CAT scan done in November of this year that showed evidence of a possible right lung mass. He was seen by his doctor last month and instructed to come. The patient did not FU and he did not seek any medical workup back then. He subsequnetly had some hemoptysis and he also complained exertional dyspnea. He has no fevers chills or sweats or sweats. No exposure to tuberculosis. He has no significant constitutional symptoms. No reported chest pain. A CT of the chest was done in the ED and it showed a RUL mass, the dimensions are hard to get as the there is also evidence of RUL atelectasis (partial). The mass in th RUL/suprahilar area is extending to the right main stem bronchus without causing any atelectasis of the right middle and the right lower lobes. The RUL upper lobe bronchus seems to be occluded with the mass. The mass is causing partial encasement if the pulmonary artery. There is no mediastinal or hilar adenopathy. On 06/14/2020 patient seen in follow-up on medical surgical floor. He is awake and alert, in no acute distress, room air pulse ox is 93%, he status post bronchoscopy with biopsies of right upper lobe endobronchial mass. No hemoptysis, recovered well, pathology results are still pending. Vital signs remain stable overnight, COVID 19 was negative, today's labs have been reviewed, showing white blood cell count of 11.8, hemoglobin of 15.2, sodium is 136, the r est of electrolytes were within normal limits, B1 is 30 creatinine 0.53. Repeat plasma lactic acid came down to 1.1, vital signs have been stable, he did have a low-grade fever this morning, and fever in the afternoon yesterday with a temp of 101.3F. Afebrile this morning. Receiving nebulas bronchodilators Objective - Vital Signs Vital signs: Vital Signs Temp 99.0 F 06/14/20 07:00 Pulse 100 06/14/20 11:03 Resp 17 06/14/20 07:00 BP 164/91 06/14/20 07:00 Pulse Ox 93 L 06/14/20 07:00 Intake & Output 06/13/20 06/14/20 06/14/20 18:59 06:59 18:59 Intake Total 650 Balance 650 Weight 82.554 kg Intake: IV 650 Other: Voiding Method Toilet Toilet Toilet # Voids 3 - Exam GENERAL EXAM: Alert, very pleasant on room air, with pulse ox of 93% comfortable in no apparent distress. HEAD: Normocephalic/atraumatic. EYES: Normal reaction of pupils, equal size. Conjunctiva pink, sclera white. NOSE: Clear with pink turbinates. THROAT: No erythema or exudates. NECK: No masses, no JVD, no thyroid enlargement, no adenopathy. CHEST: No chest wall deformity. Symmetrical expansion. LUNGS: Equal air entry with no crackles, wheeze, rhonchi or dullness. CVS: Regular rate and rhythm, normal S1 and S2, no gallops, no murmurs, no rubs ABDOMEN: Soft, nontender. No hepatosplenomegaly, normal bowel sounds, no guarding or rigidity. EXTREMITIES: No clubbing, no edema, no cyanosis, 2+ pulses and upper and lower extremities. MUSCULOSKELETAL: Muscle strength and tone normal. SPINE: No scoliosis or deformity SKIN: No rashes CENTRAL NERVOUS SYSTEM: Alert and oriented -3. No focal deficits, tone is normal in all 4 extremities. PSYCHIATRIC: Alert and oriented -3. Appropriate affect. Intact judgment and insight. - Labs CBC & Chem 7: 06/13/20 07:41 06/13/20 07:41 Assessment and Plan Plan: Assessment: 1 Right suprahilar/ RUL mass causing obstruction of the RUL bronchus and partial atelectasis of the right upper lobe. 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 Plan: Continue current medical treatment, continue breathing treatments, awaiting results of the pathology results. Vital signs are stable, did have a low-grade fever this morning, continue monitoring fever pattern, hemodynamically patient remains stable, radiation oncology was asked to see the patient for possibility of radiation treatment in regards to large right upper lobe mass causing obstruction atelectasis of the right upper lobe, and will consult medical oncology. I performed a history & physical examination of the patient and discussed their management with my nurse practitioner, Seema Lamar. I reviewed the nurse practitioner's note and agree with the documented findings and plan of care. Lung sounds are positive for diminished breath sounds. The findings and the impression was discussed with the patient. I attest to the documentation by the nurse practitioner. Time with Patient: Less than 30
--- NOTE | 2020-06-14 14:31 | P.CONS ---
History of Present Illness - Reason for Consult Consult date: 06/14/20 lung ca/dyspnea Requesting physician: Kermit Sandoval - Chief Complaint dyspnea - History of Present Illness The patient is a 60-year-old male with a history of a recently diagnosed right hilar mass consistent with lung cancer. He presented to the hospital with dyspnea, and near complete right mainstem obstruction. The patient reports his oncologic history began this past November, when his primary care physician ordered a CT scan of his chest. This was performed on December 20 and revealed a 3.2 x 2.4 cm right upper lobe mass with extension into the right upper lobe bronchus. The patient reports that he was recommended to undergo further workup, but that secondary to insurance regions as well as the Covid epidemic he delayed. He finally presented to the emergency room on June 12 secondary to increased dyspnea. He reports that the previous Thursday he had an episode of low volume hemoptysis. He reported significant wheezing and dyspnea on exertion. He underwent a CTA of the chest revealing a right upper lung mass which had increased in size, concern for invasion of the mediastinum with partial airway obstruction within the right upper lobe rhonchus. The patient underwent bronchoscopy on June 13 which revealed 95% obstruction of the right distal mainstem bronchus. This was debulked somewhat, but the patient still had only approximately 20% patency. Following this procedure, the patient reports he is wheezing less. He has continued to cough, but is breathing comfortably on room air. Review of Systems Constitutional: Denies chills, Denies fever Eyes: denies blurred vision Ears: deny: decreased hearing Ears, nose, mouth and throat: Denies headache Cardiovascular: Denies chest pain Respiratory: Reports cough, Reports cough with sputum, Reports dyspnea, Reports hemoptysis Gastrointestinal: Denies belching Integumentary: Denies rash Neurological: Denies aphasia, Denies ataxia Psychiatric: Denies anxiety, Denies confusion Past Medical History Past Medical History: Hyperlipidemia Additional Past Medical History / Comment(s): DDD neck, carpal tunnel History of Any Multi-Drug Resistant Organisms: None Reported Past Surgical History: Orthopedic Surgery Additional Past Surgical History / Comment(s): left ankle surgery 30 years ago. Past Anesthesia/Blood Transfusion Reactions: No Reported Reaction Past Psychological History: No Psychological Hx Reported Smoking Status: Current every day smoker Past Alcohol Use History: Abuse, Daily Additional Past Alcohol Use History / Comment(s): drinks 6-8beer daily or 3-4 vodka mixed drinks. depends on the day. smoke 1 pack of cigarettes day. cut back from 2 packs day Past Drug Use History: Marijuana Additional Drug Use History / Comment(s): past use of marijuana - Past Family History Father Family Medical History: Diabetes Mellitus Mother Family Medical History: CVA/TIA, Diabetes Mellitus Additional Family Medical History / Comment(s): at 82 Brother(s) Family Medical History: Coronary Artery Disease (CAD), Myocardial Infarction ([place]) Additional Family Medical History / Comment(s): 2015 Medications and Allergies Home Medications Medication Instructions Recorded Confirmed Type Albuterol Nebulized [Ventolin 2.5 mg INHALATION RT-QID PRN 06/12/20 06/12/20 History Nebulized] Hydrocodone/Acetaminophen [[facility] 1 tab PO Q6H PRN 06/12/20 06/12/20 History 10-325] Ibuprofen/Pseudoephedrine HCl 1 tab PO Q5H PRN 06/12/20 06/12/20 History [Advil Cold & Sinus Caplet] Omeprazole 20 mg PO DAILY 06/12/20 06/12/20 History Allergies Allergy/AdvReac Type Severity Reaction Status Date / Time No Known Allergies Allergy Verified 06/12/20 19:45 Physical Exam Vitals: Vital Signs Temp Pulse Pulse Pulse Resp BP Pulse Ox 06/14/20 11:03 100 06/14/20 10:53 96 06/14/20 08:22 112 H 06/14/20 08:12 104 H 06/14/20 07:00 99.0 F 103 H 17 164/91 93 L 06/14/20 04:20 17 06/14/20 01:15 99.8 F H 105 H 18 139/84 94 L 06/13/20 23:49 18 06/13/20 20:04 98.9 F 104 H 18 103/72 95 06/13/20 19:49 105 H 18 06/13/20 19:39 107 H 18 06/13/20 19:24 18 06/13/20 18:42 98.4 F 06/13/20 17:38 101 H 137/83 06/13/20 17:28 130/85 06/13/20 17:19 140/88 06/13/20 17:04 106 H 151/83 06/13/20 16:49 102 H 142/82 06/13/20 16:34 104 H 150/81 06/13/20 16:07 101.3 F H 115 H 20 112/78 94 L 06/13/20 15:30 110 H 20 121/79 94 L 06/13/20 15:15 120 H 20 119/80 94 L 06/13/20 15:02 97 F L 115 H 20 149/79 97 Intake and Output 06/13/20 06/14/20 06/14/20 22:59 06:59 14:59 Intake Total 100 Balance 100 Intake: IV 100 Other: Voiding Method Toilet Toilet Toilet Weight 82.554 kg - Constitutional General appearance: no acute distress - EENT Eyes: EOMI, PERRLA ENT: hearing grossly normal - Neck Neck: no lymphadenopathy - Respiratory Respiratory: right: diminished, left: CTA - Cardiovascular Rhythm: regular - Gastrointestinal General gastrointestinal: no distended, no tenderness - Integumentary Integumentary: no pale - Neurologic Neurologic: CNII-XII intact - Musculoskeletal Musculoskeletal: strength equal bilaterally - Psychiatric Psychiatric: A&O x's 3, appropriate affect Results CBC & Chem 7: 06/13/20 07:41 06/13/20 07:41 CT scan - chest: report reviewed, image reviewed Assessment and Plan Plan: The patient is a 60-year-old male with a history of a recently diagnosed right hilar mass consistent with lung cancer. He presented to the hospital with dyspnea, and near complete right mainstem obstruction. 1. Right upper lung neoplasm: Pathology is pending at this time. As detailed above, the patient still has an 80% obstruction of the mainstem bronchus, and pulmonology his concern regarding possible lung collapse. I recommended the patient initiate urgent radiotherapy while he complete his workup. I explained that regardless of pathology, the patient would require a PET/CT, as well as a MRI of the brain to rule out distant disease. I explained that if the patient is not found to have any distant disease, we will convert his course to concurrent chemoradiation for approximately 6 weeks. We will plan on delivering the patient 1 fraction prior to his discharge, with plans to continue radiotherapy on Thursday. I discussed with the patient that possible side effects of this treatment include, but are not limited to; fatigue, cough, dyspnea, dysphagia, odynophag ia, and late effects such as radiation pneumonitis, fibrosis and low risk of cardiotoxicity. The patient is agreeable to initiate treatments. Time with Patient: Greater than 30
[2020-06-14] MEDS ORDERED: CALCIUM CARBONATE 500 MG CHEWABLE PO PRN (14:39)
--- NOTE | 2020-06-14 15:05 | P.CONS ---
History of Present Illness - Reason for Consult Consult date: 06/14/20 RUL Mass Requesting physician: Kermit Sandoval - Chief Complaint SOB - History of Present Illness Mr. Henriquez is a 60 year old male patient who has known history of tobacco abuse. In November of this year he apparently had a CT of the chest that was suspicious for pulmonary mass. He was told of this and instructed for follow-up per medical record but did not seek medical work-up. CT revealed on 12/20/19 a 3.2 x 2.4 cm right upper lobe mass with extension into the right upper lobe bronchus. The patient reports that he was recommended to undergo further workup, but that secondary to insurance regions as well as the Covid epidemic he delayed. Recently he started to delelop increased shortness of breath and hemoptysis. He presented to his PCP who instructed him to be seen in ER. A CT of the chest performed revealed the RUL mass which appears increased with evidence of RUL atelectasis. There appears to be extension to the right main bronchus, RUL upper lobe bronchus occlusion. There is also partial encasement of the pulmonary artery. No definitive mediastinal or hilar adenopathy was noted. Dr. Chapa from radiation oncology has been consulted regarding the near complete obstruction of the right mainstem bronchus. He is status post bronchoscopy yesterday June 13, 2020, revealing a 95% obstruction of the right distal mainstem bronchuus. The concern of malignancy is why medical oncology has now been asked to further evaluate. Review of Systems A 14 point review of systems assessed and completed and all negative except HPI Past Medical History Past Medical History: Hyperlipidemia Additional Past Medical History / Comment(s): DDD neck, carpal tunnel History of Any Multi-Drug Resistant Organisms: None Reported Past Surgical History: Orthopedic Surgery Additional Past Surgical History / Comment(s): left ankle surgery 30 years ago. Past Anesthesia/Blood Transfusion Reactions: No Reported Reaction Past Psychological History: No Psychological Hx Reported Smoking Status: Current every day smoker Past Alcohol Use History: Abuse, Daily Additional Past Alcohol Use History / Comment(s): drinks 6-8beer daily or 3-4 vodka mixed drinks. depends on the day. smoke 1 pack of cigarettes day. cut back from 2 packs day Past Drug Use History: Marijuana Additional Drug Use History / Comment(s): past use of marijuana - Past Family History Father Family Medical History: Diabetes Mellitus Mother Family Medical History: CVA/TIA, Diabetes Mellitus Additional Family Medical History / Comment(s): at 82 Brother(s) Family Medical History: Coronary Artery Disease (CAD), Myocardial Infarction ([place]) Additional Family Medical History / Comment(s): 2015 Medications and Allergies Home Medications Medication Instructions Recorded Confirmed Type Albuterol Nebulized [Ventolin 2.5 mg INHALATION RT-QID PRN 06/12/20 06/12/20 History Nebulized] Hydrocodone/Acetaminophen [[place] 1 tab PO Q6H PRN 06/12/20 06/12/20 History 10-325] Ibuprofen/Pseudoephedrine HCl 1 tab PO Q5H PRN 06/12/20 06/12/20 History [Advil Cold & Sinus Caplet] Omeprazole 20 mg PO DAILY 06/12/20 06/12/20 History Allergies Allergy/AdvReac Type Severity Reaction Status Date / Time No Known Allergies Allergy Verified 06/12/20 19:45 Physical Exam Vitals: Vital Signs Temp Pulse Pulse Pulse Resp BP Pulse Ox 06/14/20 11:03 100 06/14/20 10:53 96 06/14/20 08:22 112 H 06/14/20 08:12 104 H 06/14/20 07:00 99.0 F 103 H 17 164/91 93 L 06/14/20 04:20 17 06/14/20 01:15 99.8 F H 105 H 18 139/84 94 L 06/13/20 23:49 18 06/13/20 20:04 98.9 F 104 H 18 103/72 95 06/13/20 19:49 105 H 18 06/13/20 19:39 107 H 18 06/13/20 19:24 18 06/13/20 18:42 98.4 F 06/13/20 17:38 101 H 137/83 06/13/20 17:28 130/85 06/13/20 17:19 140/88 06/13/20 17:04 106 H 151/83 06/13/20 16:49 102 H 142/82 06/13/20 16:34 104 H 150/81 06/13/20 16:07 101.3 F H 115 H 20 112/78 94 L 06/13/20 15:30 110 H 20 121/79 94 L 06/13/20 15:15 120 H 20 119/80 94 L 06/13/20 15:02 97 F L 115 H 20 149/79 97 Intake and Output 06/13/20 06/14/20 06/14/20 22:59 06:59 14:59 Intake Total 100 Balance 100 Intake: IV 100 Other: Voiding Method Toilet Toilet Toilet Weight 82.554 kg - Constitutional General appearance: no acute distress - EENT Eyes: EOMI, PERRLA ENT: hearing grossly normal - Neck Neck: no lymphadenopathy - Respiratory Respiratory: right: diminished, left: CTA - Cardiovascular Rhythm: regular - Gastrointestinal General gastrointestinal: no distended, no tenderness - Integumentary Integumentary: no pale - Neurologic Neurologic: CNII-XII intact - Musculoskeletal Musculoskeletal: strength equal bilaterally - Psychiatric Psychiatric: A&O x's 3, appropriate affect Results CBC & Chem 7: 06/13/20 07:41 06/13/20 07:41 Assessment and Plan Plan: Assessment and Recommendations: Right Upper Lobe Hilar Mass with 94% obstruction of the right mainstem bronchus: - Status POst Bronchoscopy and Tissue Biopsy - Await Path and if a NSCLCA will send for NGS and PDL1 - Staging scans with CT abdomen and pelvis and MRI of the brain ordered - Dr. Chapa from Radiation oncology on consult give obstruction - Further recommendations once path is resulted COPD Exacerbation: - Per Pulmonary Neck and Back Pain: - Hx: of chronic back pain see's restorative medicine and takes 4-10/325 norco a day for approx 4-5 years. Pain has been worse the past few weeks to where his normal pain meds do not seem to help as much although he states its toleraable and does not need additional medicine. - WIll add flexeril Thank you for allowing us to participate in the care of this patient we will follow along with you.
[2020-06-14] MEDS: IOPAMIDOL CONTRAST (ORAL USE) VIAL PO PRN ×2 (15:21→16:04)
--- NOTE | 2020-06-14 17:58 | CT ---
EXAMINATION TYPE: CT abdomen pelvis w con DATE OF EXAM: 06/14/2020 COMPARISON: None HISTORY: Staging for lung cancer. CT DLP: 1194.3 mGycm Automated exposure control for dose reduction was used. TECHNIQUE: Helical acquisition of images from the lung bases through the pelvis have been completed. CONTRAST: Performed with Oral Contrast and with IV Contrast, patient injected with 100ml mL of Isovue 300. FINDINGS: LUNG BASES: Patchy densities present posterior right lung base, there is a right pleural effusion. AORTA: No significant abnormality is appreciated. LIVER/GB: Liver shows low attenuation likely due to hepatic steatosis. Gallbladder is unremarkable. PANCREAS: No significant abnormality is seen. SPLEEN: No significant abnormality is seen. ADRENALS: There is a soft tissue left adrenal mass measuring 2.4 cm. KIDNEYS: No significant abnormality is seen. REPRODUCTIVE ORGANS: Prostate shows associated calcification. BOWEL: Diverticular changes associated with the sigmoid colon. FREE AIR: No Free Air visible. ASCITES: None visible. PELVIC ADENOPATHY: None visualized. RETROPERITONEAL ADENOPATHY: No Retroperitoneal Adenopathy visible. URINARY BLADDER: Urine distended. OSSEOUS STRUCTURES: No significant abnormality is seen. IMPRESSION: THERE IS A RIGHT PLEURAL EFFUSION PRESENT. LEFT ADRENAL MASS IS INDETERMINATE. ADRENAL MRI MAY BE OF BENEFIT. HEPATIC STEATOSIS. DIVERTICULOSIS.
[2020-06-14] MEDS: CYCLOBENZAPRINE 5 MG TAB PO SCH (21:30)
[2020-06-14] MEDS: ACETAMINOPHEN TAB 325 MG TAB PO PRN (21:30)
[2020-06-15] MEDS: HEPARIN SODIUM,PORCINE 5,000 UNIT/ML 1 ML VIAL SQ SCH ×3 (01:52→15:27)
[2020-06-15] MEDS: HYDROcodone/APAP 10-325MG 1 EACH TAB PO PRN ×3 (02:10→14:42)
[2020-06-15] MEDS: SODIUM CHLORIDE 0.9% 1,000 ML IV SCH ×3 (02:12→15:45)
[2020-06-15] MEDS: IPRATROPIUM-ALBUTEROL 3 ML NEB INHALATION SCH ×5 (04:05→21:14)
[2020-06-15] MEDS: NICOTINE 14MG/24HR PATCH TRANSDERM SCH (08:28)
[2020-06-15] MEDS: PANTOPRAZOLE 40 MG TABLET PO SCH (08:28)
[2020-06-15] MEDS: CYCLOBENZAPRINE 5 MG TAB PO SCH (08:28)
--- NOTE | 2020-06-15 11:53 | P.PN ---
Subjective Progress Note Date: 06/15/20 Principal diagnosis: Right suprahilar/right upper lobe mass causing obstruction of the right upper lobe bronchus and partial atelectasis of the right upper lobe, status post bronchoscopy and endobronchial biopsy This is a 60-year-old male who is a smoker who was sent in by his doctor for evaluation for a possible right lung mass. He is a chronic smoker. He apparently had a CAT scan done in November of this year that showed evidence of a possible right lung mass. He was seen by his doctor last month and instructed to come. The patient did not FU and he did not seek any medical workup back then. He subsequnetly had some hemoptysis and he also complained exertional dyspnea. He has no fevers chills or sweats or sweats. No exposure to tuberculosis. He has no significant constitutional symptoms. No reported chest pain. A CT of the chest was done in the ED and it showed a RUL mass, the dimensions are hard to get as the there is also evidence of RUL atelectasis (partial). The mass in th RUL/suprahilar area is extending to the right main stem bronchus without causing any atelectasis of the right middle and the right lower lobes. The RUL upper lobe bronchus seems to be occluded with the mass. The mass is causing partial encasement if the pulmonary artery. There is no mediastinal or hilar adenopathy. On 06/14/2020 patient seen in follow-up on medical surgical floor. He is awake and alert, in no acute distress, room air pulse ox is 93%, he status post bronchoscopy with biopsies of right upper lobe endobronchial mass. No hemoptysis, recovered well, pathology results are still pending. Vital signs remain stable overnight, COVID 19 was negative, today's labs have been reviewed, showing white blood cell count of 11.8, hemoglobin of 15.2, sodium is 136, the r est of electrolytes were within normal limits, B1 is 30 creatinine 0.53. Repeat plasma lactic acid came down to 1.1, vital signs have been stable, he did have a low-grade fever this morning, and fever in the afternoon yesterday with a temp of 101.3F. Afebrile this morning. Receiving nebulas bronchodilators On 06/15/2020 patient seen in follow-up on a general medical surgical floor. He is sitting comfortably in bed, denies any acute distress, his transbronchial biopsy of the right upper lobe is still pending at this time, patient was seen by medical oncology and radiation oncology, he is anticipated to be starting on radiation treatments today, no acute events overnight, he is on room air, pulse ox 92%, continues on breathing treatments, and IV fluids, medical oncology saw the patient and abdominal CT and CT of the pelvis were completed showing right pleural effusion, left adrenal mass which is indeterminate, and this was advised to be followed up with an adrenal MRI, hepatic steatosis and diverticulosis. MRI of the brain is pending. Objective - Vital Signs Vital signs: Vital Signs Temp 98.5 F 06/15/20 07:00 Pulse 104 H 06/15/20 11:03 Resp 18 06/15/20 07:00 BP 159/95 06/15/20 07:00 Pulse Ox 92 L 06/15/20 07:00 Intake & Output 06/14/20 06/15/20 06/15/20 18:59 06:59 18:59 Other: Voiding Method Toilet Toilet Toilet # Voids 2 4 - Exam GENERAL EXAM: Alert, very pleasant on room air, with pulse ox of 92% comfortable in no apparent distress. HEAD: Normocephalic/atraumatic. EYES: Normal reaction of pupils, equal size. Conjunctiva pink, sclera white. NOSE: Clear with pink turbinates. THROAT: No erythema or exudates. NECK: No masses, no JVD, no thyroid enlargement, no adenopathy. CHEST: No chest wall deformity. Symmetrical expansion. LUNGS: Equal air entry with no crackles, wheeze, rhonchi or dullness. CVS: Regular rate and rhythm, normal S1 and S2, no gallops, no murmurs, no rubs ABDOMEN: Soft, nontender. No hepatosplenomegaly, normal bowel sounds, no guarding or rigidity. EXTREMITIES: No clubbing, no edema, no cyanosis, 2+ pulses and upper and lower extremities. MUSCULOSKELETAL: Muscle strength and tone normal. SPINE: No scoliosis or deformity SKIN: No rashes CENTRAL NERVOUS SYSTEM: Alert and oriented -3. No focal deficits, tone is normal in all 4 extremities. PSYCHIATRIC: Alert and oriented -3. Appropriate affect. Intact judgment and insight. - Labs CBC & Chem 7: 06/13/20 07:41 07/15/20 07:41 Assessment and Plan Plan: Assessment: 1 Right suprahilar/ RUL mass causing obstruction of the RUL bronchus and partial atelectasis of the right upper lobe. 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 Plan: Continue current medical treatment, no acute events overnight, patient is on room air, vital signs are stable, patient is completing his staging CT scans, MRI of the brain is pending, medical oncology is following, radiation oncology is following. Radiation treatments to be initiated today. I performed a history & physical examination of the patient and discussed their management with my nurse practitioner, Seema Lamar. I reviewed the nurse practitioner's note and agree with the documented findings and plan of care. Lung sounds are positive for diminished breath sounds. The findings and the impression was discussed with the patient. I attest to the documentation by the nurse practitioner. Time with Patient: Less than 30
--- NOTE | 2020-06-15 15:20 | P.PN ---
Subjective Progress Note Date: 06/15/20 Principal diagnosis: New Lung Mass concern for malignancy. CT abdomen revealed 2.4cm soft tissue left adrenal gland lesion but no other abnormalities. Awaiting MRI brain and path. PLan PET as outpatient Objective - Vital Signs Vital signs: Vital Signs Temp 98.5 F 06/15/20 07:00 Pulse 104 H 06/15/20 11:03 Resp 18 06/15/20 07:00 BP 159/95 06/15/20 07:00 Pulse Ox 92 L 06/15/20 07:00 Intake & Output 06/14/20 06/15/20 06/15/20 18:59 06:59 18:59 Intake Total 400 Balance 400 Intake: Intake, IV Titration 400 Amount Sodium Chloride 0.9% 1, 400 000 ml @ 100 mls/hr IV . Q10H [facility] Rx#:[id number] Other: Voiding Method Toilet Toilet Toilet # Voids 2 4 - Exam - Constitutional General appearance: no acute distress - EENT Eyes: EOMI, PERRLA ENT: hearing grossly normal - Neck Neck: no lymphadenopathy - Respiratory Respiratory: right: diminished, left: CTA - Cardiovascular Rhythm: regular - Gastrointestinal General gastrointestinal: no distended, no tenderness - Integumentary Integumentary: no pale - Neurologic Neurologic: CNII-XII intact - Musculoskeletal Musculoskeletal: strength equal bilaterally - Psychiatric Psychiatric: A&O x's 3, appropriate affect - Labs CBC & Chem 7: 06/13/20 07:41 06/13/20 07:41 Assessment and Plan Plan: Assessment and Recommendations: Right Upper Lobe Hilar Mass with 94% obstruction of the right mainstem bronchus: - Status POst Bronchoscopy and Tissue Biopsy - Await Path and if a NSCLCA will send for NGS and PDL1 - Staging scans with CT abdomen and pelvis and MRI of the brain ordered - Dr. Chapa from Radiation oncology on consult give obstruction - Further recommendations once path is resulted - CT abdomen with 2.4cm soft tissue mass on left adrenal - Plan PET as outpatient - Follow-up with Dr. Ulrich as outpatient 2 weeks COPD Exacerbation: - Per Pulmonary Neck and Back Pain: - Hx: of chronic back pain see's restorative medicine and takes 4-10/325 norco a day for approx 4-5 years. Pain has been worse the past few weeks to where his normal pain meds do not seem to help as much although he states its toleraable and does not need additional medicine. - WIll add flexeril
--- NOTE | 2020-06-15 16:31 | MR ---
EXAMINATION TYPE: MR brain wo/w con DATE OF EXAM: 06/15/2020 4:23 PM COMPARISON: NONE HISTORY: Initial staging likely lung cancer CONTRAST: Patient received 7.5 mL intravenous Gadavist gadolinium contrast. Multiplanar and multispin-echo imaging of the brain was performed . Pre and post contrast enhanced i mages are obtained. The ventricles, basal cisterns and sulci overlying the cerebral convexities are mildly enlarged. There is evidence of mild periventricular white matter ischemic demyelination. Remote deep white matter insults are also noted. No acute edema is seen on diffusion weighted imaging. There is no evidence for midline shift or mass effect. Acute intracranial hemorrhage or extra-axial collection is not evident. No enhancing lesions are seen. The paranasal sinuses and mastoid air cells are well-aerated. IMPRESSION: Age-related atrophic and chronic small vessel ischemic change. No acute intracranial process at this time. No enhancing lesions are seen.
[2020-06-15] MEDS: ACETAMINOPHEN TAB 325 MG TAB PO PRN (17:13)
[2020-06-15] MEDS ORDERED: IPRATROPIUM-ALBUTEROL 3 ML NEB INHALATION PRN (21:33)
[2020-06-16] MEDS: HYDROcodone/APAP 10-325MG 1 EACH TAB PO PRN ×2 (01:19→08:57)
[2020-06-16] MEDS: HEPARIN SODIUM,PORCINE 5,000 UNIT/ML 1 ML VIAL SQ SCH ×2 (01:19→08:56)
[2020-06-16] MEDS: CYCLOBENZAPRINE 5 MG TAB PO SCH ×2 (01:20→08:57)
[2020-06-16] MEDS: SODIUM CHLORIDE 0.9% 1,000 ML IV SCH (07:03)
[2020-06-16 07:14] VITALS: BP 130/83; RESP 18; TEMP 98.6
[2020-06-16] MEDS: IPRATROPIUM-ALBUTEROL 3 ML NEB INHALATION SCH ×2 (08:05→11:37)
[2020-06-16] MEDS: NICOTINE 14MG/24HR PATCH TRANSDERM SCH (08:56)
[2020-06-16] MEDS: PANTOPRAZOLE 40 MG TABLET PO SCH (08:57)
[2020-06-16] MEDS: ACETAMINOPHEN TAB 325 MG TAB PO PRN (09:02)
[2020-06-16 11:48] VITALS: PULSE 95
--- NOTE | 2020-06-16 11:58 | P.PN ---
Subjective Progress Note Date: 06/14/20 Patient is a 60-year-old male with a known history of smoking, degenerative disc disease, hyperlipidemia and history of marijuana use as well as daily alcohol use came to ER with the complaints of shortness of breath, exertional dyspnea and cough which is getting for the past few months. Patient. Blood-tinged sputum few days back. Patient contacted his primary care physician who recommended him to go to ER. Patient was being worked up for lung mass sometime in November where he had a CAT scan done showed evidence of possible right lung mass. Due to COVID-19 management patient states he is unable to follow-up with his physician and presented to ER due to worsening symptoms. Denied any complaints of chest pain. No nausea vomiting or abdominal pain. Patient states that she did have decreased appetite. CTA chest in the ER showed large mediastinal mass appears to be obstructing the right main bronchus and may have partial encasement of the right main pulmonary artery. No acute pulmonary embolism. Chest x-ray showed findings suggestive for a right superior mediastinal mass. EKG showed normal sinus rhythm. Laboratory data showed WBC 13.3, hemoglobin 14.4 and platelets 534 D-dimer is 0.88 Sodium 132, potassium 3.4, chloride 97 and bicarb is 21 BUN 4 and creatinine 0.55 lactic acid 3.8 on admission proBNP 41 Troponin x1- Coronavirus PCR negative. 06/14/2020 Patient is currently awake alert and oriented 3. Patient is status post bronchoscopy with biopsy of right upper lobe mass. Hemoglobin is stable. Oncology was consulted. Pulmonary is on. Laboratory data Sugar is 11.9, hemoglobin 15.2, sodium 136 and creatinine 0.53. Patient is being continued on bronchodilators. Patient has been afebrile otherwise. No chest pain or worsening shortness of breath. Current medications reviewed Objective - Vital Signs Vital signs: Vital Signs Temp 98.7 F 06/14/20 15:00 Pulse 101 H 06/14/20 15:36 Resp 20 06/14/20 15:00 BP 143/85 06/14/20 15:00 Pulse Ox 96 06/14/20 15:00 Intake & Output 06/13/20 06/14/20 06/14/20 18:59 06:59 18:59 Intake Total 650 Balance 650 Weight 82.554 kg Intake: IV 650 Other: Voiding Method Toilet Toilet Toilet # Voids 3 2 - Exam PHYSICAL EXAMINATION: Patient is lying in the bed comfortably, no acute distress, awake alert and oriented.. HEENT: Normocephalic. Neck is supple. Pupils reactive. Nostrils clear. Oral cavity is moist. Ears reveal no drainage. Neck reveals no JVD, carotid bruits, or thyromegaly. CHEST EXAMINATION: Trachea is central. Symmetrical expansion. Mild expiratory wheeze. Lung reyez clear to auscultation and percussion. CARDIAC: Normal S1, S2 with no gallops. No murmurs ABDOMEN: Soft. Bowel sounds normal. No organomegaly. No abdominal bruits. Extremities: reveal no edema. No clubbing or cyanosis Neurologically awake, alert, oriented x3 with well-coordinated movements. No focal deficits noted Skin: No rash or skin lesions. Psychiatric: Coperative. Nonsuicidal Musculoskeletal: No joint swelling or deformity. Normal range of motion. - Labs CBC & Chem 7: 06/13/20 07:41 06/13/20 07:41 Assessment and Plan Assessment: Lung mass. CT showed large mediastinal mass appears to be obstructing the right main bronchus. Status post bronchoscopy and biopsy. Ongoing Nicotine addiction. Hypovolemic hyponatremia Hypokalemia Lactic acidosis Elevated d-dimer level. CTA negative for pulmonary embolism. Daily alcohol use Degenerative disc disease and neck pain Hyperlipidemia History of marijuana use DVT prophylaxis Plan: Patient will be continued breathing treatments and pain management. Pulmonary is following. Oncology is on board. Follow biopsy report.. Continue with oxygen therapy as needed. Smoking cessation has been counseled extensively. Time with Patient: Greater than 30
--- NOTE | 2020-06-16 12:01 | P.PN ---
Subjective Progress Note Date: 06/15/20 Principal diagnosis: Lung mass. CT showed large mediastinal mass appears to be obstructing the right main bronchus. Status post bronchoscopy and biopsy Patient is a 60-year-old male with a known history of smoking, degenerative disc disease, hyperlipidemia and history of marijuana use as well as daily alcohol use came to ER with the complaints of shortness of breath, exertional dyspnea and cough which is getting for the past few months. Patient. Blood-tinged sputum few days back. Patient contacted his primary care physician who recomme nded him to go to ER. Patient was being worked up for lung mass sometime in November where he had a CAT scan done showed evidence of possible right lung mass. Due to COVID-19 management patient states he is unable to follow-up with his physician and presented to ER due to worsening symptoms. Denied any complaints of chest pain. No nausea vomiting or abdominal pain. Patient states that she did have decreased appetite. CTA chest in the ER showed large mediastinal mass appears to be obstructing the right main bronchus and may have partial encasement of the right main pulmonary artery. No acute pulmonary embolism. Chest x-ray showed findings suggestive for a right superior mediastinal mass. EKG showed normal sinus rhythm. Laboratory data showed WBC 13.3, hemoglobin 14.4 and platelets 534 D-dimer is 0.88 Sodium 132, potassium 3.4, chloride 97 and bicarb is 21 BUN 4 and creatinine 0.55 lactic acid 3.8 on admission proBNP 41 Troponin x1- Coronavirus PCR negative. 06/14/2020 Patient is currently awake alert and oriented 3. Patient is status post bronchoscopy with biopsy of right upper lobe mass. Hemoglobin is stable. Oncology was consulted. Pulmonary is on. Laboratory data Sugar is 11.9, hemoglobin 15.2, sodium 136 and creatinine 0.53. Patient is being continued on bronchodilators. Patient has been afebrile otherwise. No chest pain or worsening shortness of breath. 06/15/2020 Patient is currently sitting the bed comfortably. Patient has been afebrile. Biopsy report is pending. Patient was seen by oncology and is starting radiation therapy today. Otherwise patient is being continued on breathing treatments. Pulmonary is on board. CT of the abdomen and pelvis were done. MRI of the brain is pending. No chest pain or worsening shortness of breath. No fever no chills. No acute overnight issues. Current medications reviewed Objective - Vital Signs Vital signs: Vital Signs Temp 98.1 F 06/15/20 15:00 Pulse 100 06/15/20 21:33 Resp 18 06/15/20 15:00 BP 143/86 06/15/20 15:00 Pulse Ox 98 06/15/20 15:00 Intake & Output 06/15/20 06/15/20 06/16/20 06:59 18:59 06:59 Intake Total 400 Balance 400 Intake: Intake, IV Titration 400 Amount Sodium Chloride 0.9% 1, 400 000 ml @ 100 mls/hr IV . Q10H [facility] Rx#:[id number] Other: Voiding Method Toilet Toilet # Voids 4 - Exam PHYSICAL EXAMINATION: Patient is lying in the bed comfortably, no acute distress, awake alert and oriented.. HEENT: Normocephalic. Neck is supple. Pupils reactive. Nostrils clear. Oral cav ity is moist. Ears reveal no drainage. Neck reveals no JVD, carotid bruits, or thyromegaly. CHEST EXAMINATION: Trachea is central. Symmetrical expansion. Mild expiratory wheeze. Lung reyez clear to auscultation and percussion. CARDIAC: Normal S1, S2 with no gallops. No murmurs ABDOMEN: Soft. Bowel sounds normal. No organomegaly. No abdominal bruits. Extremities: reveal no edema. No clubbing or cyanosis Neurologically awake, alert, oriented x3 with well-coordinated movements. No focal deficits noted Skin: No rash or skin lesions. Psychiatric: Coperative. Nonsuicidal Musculoskeletal: No joint swelling or deformity. Normal range of motion. - Labs CBC & Chem 7: 06/13/20 07:41 06/13/20 07:41 Assessment and Plan Assessment: Lung mass. CT showed large mediastinal mass appears to be obstructing the right main bronchus. Status post bronchoscopy and biopsy. Starting on radiation therapy. Ongoing Nicotine addiction. Hypovolemic hyponatremia Hypokalemia Lactic acidosis Elevated d-dimer level. CTA negative for pulmonary embolism. Daily alcohol use Degenerative disc disease and neck pain Hyperlipidemia History of marijuana use DVT prophylaxis Plan: Patient will be continued breathing treatments and pain management. Pulmonary is following. Oncology is on board. Follow biopsy report.. Continue with oxygen therapy as needed. Smoking cessation has been counseled extensively. Time with Patient: Greater than 30
--- NOTE | 2020-06-16 13:43 | P.PN ---
Subjective Progress Note Date: 06/16/20 Principal diagnosis: Right suprahilar/right upper lobe mass causing obstruction of the right upper lobe bronchus and partial atelectasis of the right upper lobe, status post bronchoscopy and endobronchial biopsy. Pathology pending This is a 60-year-old male who is a smoker who was sent in by his doctor for evaluation for a possible right lung mass. He is a chronic smoker. He apparently had a CAT scan done in November of this year that showed evidence of a possible right lung mass. He was seen by his doctor last month and instructed to come. The patient did not FU and he did not seek any medical workup back then. He subsequnetly had some hemoptysis and he also complained exertional dyspnea. He has no fevers chills or sweats or sweats. No exposure to tuberculosis. He has no significant constitutional symptoms. No reported chest pain. A CT of the chest was done in the ED and it showed a RUL mass, the dimensions are hard to get as the there is also evidence of RUL atelectasis (partial). The mass in th RUL/suprahilar area is extending to the right main stem bronchus without causing any atelectasis of the right middle and the right lower lobes. The RUL upper lobe bronchus seems to be occluded with the mass. The mass is causing partial encasement if the pulmonary artery. There is no mediastinal or hilar adenopathy. On 06/14/2020 patient seen in follow-up on medical surgical floor. He is awake and alert, in no acute distress, room air pulse ox is 93%, he status post bronchoscopy with biopsies of right upper lobe endobronchial mass. No hemoptysis, recovered well, pathology results are still pending. Vital signs remain stable overnight, COVID 19 was negative, today's labs have been reviewed, showing white blood cell count of 11.8, hemoglobin of 15.2, sodium is 136, the rest of electrolytes were within normal limits, B1 is 30 creatinine 0.53. Repeat plasma lactic acid came down to 1.1, vital signs have been stable, he did have a low-grade fever this morning, and fever in the afternoon yesterday with a temp of 101.3F. Afebrile this morning. Receiving nebulas bronchodilators On 06/15/2020 patient seen in follow-up on a general medical surgical floor. He is sitting comfortably in bed, denies any acute distress, his transbronchial biopsy of the right upper lobe is still pending at this time, patient was seen by medical oncology and radiation oncology, he is anticipated to be starting on radiation treatments today, no acute events overnight, he is on room air, pulse ox 92%, continues on breathing treatments, and IV fluids, medical oncology saw the patient and abdominal CT and CT of the pelvis were completed showing right pleural effusion, left adrenal mass which is indeterminate, and this was advised to be followed up with an adrenal MRI, hepatic steatosis and diverticulosis. MRI of the brain is pending. The patient is seen today 06/16/2020 in follow-up on the regular medical floor. He is resting comfortably in bed. Awake and alert in no acute distress. He denies any worsening shortness of breath, cough or congestion. Maintaining O2 saturations in the 90s on room air. Slight headache from previous coughing that has resolved. MRI of the brain did not reveal any acute intracranial process. No enhancing lesions. No evidence of metastasis. Computed tomography scan of the abdomen and pelvis revealed a right pleural effusion. Left adrenal mass is indeterminate. Hepatic steatosis. Diverticulosis. Objective - Vital Signs Vital signs: Vital Signs Temp 98.6 F 06/16/20 07:00 Pulse 95 06/16/20 11:47 Resp 18 06/16/20 08:25 BP 130/83 06/16/20 07:00 Pulse Ox 93 L 06/16/20 08:08 Intake & Output 06/15/20 06/16/20 06/16/20 18:59 06:59 18:59 Intake Total 400 200 Balance 400 200 Intake: Intake, IV Titration 400 Amount Sodium Chloride 0.9% 1, 400 000 ml @ 100 mls/hr IV . Q10H [facility] Rx#:[id number] Oral 200 Other: Voiding Method Toilet Toilet Toilet # Voids 1 - Exam GENERAL EXAM: Alert, very pleasant 60-year-old gentleman, on room air, comfortable in no apparent distress. HEAD: Normocephalic/atraumatic. EYES: Normal reaction of pupils, equal size. Conjunctiva pink, sclera white. NOSE: Clear with pink turbinates. THROAT: No erythema or exudates. NECK: No masses, no JVD, no thyroid enlargement, no adenopathy. CHEST: No chest wall deformity. Symmetrical expansion. LUNGS: Equal air entry with no crackles, wheeze, rhonchi or dullness. CVS: Regular rate and rhythm, normal S1 and S2, no gallops, no murmurs, no rubs ABDOMEN: Soft, nontender. No hepatosplenomegaly, normal bowel sounds, no guarding or rigidity. EXTREMITIES: No clubbing, no edema, no cyanosis, 2+ pulses and upper and lower extremities. MUSCULOSKELETAL: Muscle strength and tone normal. SPINE: No scoliosis or deformity SKIN: No rashes CENTRAL NERVOUS SYSTEM: No focal deficits, tone is normal in all 4 extremities. PSYCHIATRIC: Alert and oriented -3. Appropriate affect. Intact judgment and insight. - Labs CBC & Chem 7: 06/13/20 07:41 06/13/20 07:41 Assessment and Plan Assessment: 1 Right suprahilar/ RUL mass causing obstruction of the RUL bronchus and partial atelectasis of the right upper lobe. 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 Plan: The patient was seen and evaluated by Dr. Sandoval He is cleared for discharge from the pulmonary standpoint Pathology is still pending Radiation treatments initiated To follow up with medical oncology and radiation oncology Follow-up in our office in 1-2 weeks' time I, the cosigning physician, performed a history & physical examination of the patient. Lungs sounds are clear, diminished. Maintaining good O2 saturations in the 90s on room air. I discussed the assessment and plan of care with my nurse practitioner, Libia Gillespie. I attest to the above note as dictated by her.
--- NOTE | 2020-06-26 21:27 | P.DS ---
Providers Date of admission: 06/14/20 15:36 Expected date of discharge: 06/16/20 Attending physician: Ankuhs Graves Consults: 06/12/20 19:35 Consult Physician Routine Consulting Provider: Kermit Sandoval Consult Reason/Comments: Right hilar lung mass, COPD Do you want consulting provider notified?: Yes 06/13/20 14:50 Consult Physician Routine Consulting Provider: Raheem Chapa Consult Reason/Comments: right upper lobe mass Do you want consulting provider notified?: Yes 06/14/20 09:21 Consult Physician Routine Consulting Provider: Cristian Ulrich Consult Reason/Comments: right upper lobe mass Do you want consulting provider notified?: Yes Primary care physician: [facility] Course: Discharge diagnosis Lung mass. CT showed large mediastinal mass appears to be obstructing the right main bronchus. Status post bronchoscopy and biopsy. Started on radiation therapy. Ongoing Nicotine addiction. Hypovolemic hyponatremia Hypokalemia Lactic acidosis Elevated d-dimer level. CTA negative for pulmonary embolism. Daily alcohol use Degenerative disc disease and neck pain Hyperlipidemia History of marijuana use DVT prophylaxis Hospital course Patient is a 60-year-old male with a known history of smoking, degenerative disc disease, hyperlipidemia and history of marijuana use as well as daily alcohol use came to ER with the complaints of shortness of breath, exertional dyspnea and cough which is getting for the past few months. Patient. Blood-tinged sputum few days back. Patient contacted his primary care physician who recommended him to go to ER. Patient was being worked up for lung mass sometime in November where he had a CAT scan done showed evidence of possible right lung mass. Due to COVID-19 manage ment patient states he is unable to follow-up with his physician and presented to ER due to worsening symptoms. Denied any complaints of chest pain. No nausea vomiting or abdominal pain. Patient states that she did have decreased appetite. CTA chest in the ER showed large mediastinal mass appears to be obstructing the right main bronchus and may have partial encasement of the right main pulmonary artery. No acute pulmonary embolism. Chest x-ray showed findings suggestive for a right superior mediastinal mass. EKG showed normal sinus rhythm. Laboratory data showed WBC 13.3, hemoglobin 14.4 and platelets 534 D-dimer is 0.88 Sodium 132, potassium 3.4, chloride 97 and bicarb is 21 BUN 4 and creatinine 0.55 lactic acid 3.8 on admission proBNP 41 Troponin x1- Coronavirus PCR negative. 06/14/2020 Patient is currently awake alert and oriented 3. Patient is status post bronchoscopy with biopsy of right upper lobe mass. Hemoglobin is stable. Oncology was consulted. Pulmonary is on. Laboratory data Sugar is 11.9, hemoglobin 15.2, sodium 136 and creatinine 0.53. Patient is being continued on bronchodilators. Patient has been afebrile otherwise. No chest pain or worsening shortness of breath. 06/15/2020 Patient is currently sitting the bed comfortably. Patient has been afebrile. Biopsy report is pending. Patient was seen by oncology and is starting radiation therapy today. Otherwise patient is being continued on breathing treatments. Pulmonary is on board. CT of the abdomen and pelvis were done. MRI of the brain is pending. No chest pain or worsening shortness of breath. No fever no chills. No acute overnight issues. 06/16/2020 Patient is currently awake alert oriented x3. Breathing status is better. Patient underwent radiation therapy. Next radiation will be on Thursday. Otherwise patient is being continued on breathing treatments and pain medications. Patient will need to follow-up with oncology and radiation oncology and pulmonary as outpatient. Patient had CT of the abdomen pelvis and PET scan to be done as an outpatient. Patient is being discharged home today. PHYSICAL EXAMINATION: Patient is lying in the bed comfortably, no acute distress, awake alert and oriented.. HEENT: Normocephalic. Neck is supple. Pupils reactive. Nostrils clear. Oral cavity is moist. Ears reveal no drainage. Neck reveals no JVD, carotid bruits, or thyromegaly. CHEST EXAMINATION: Trachea is central. Symmetrical expansion. Mild expiratory wheeze. Lung reyez clear to auscultation and percussion. CARDIAC: Normal S1, S2 with no gallops. No murmurs ABDOMEN: Soft. Bowel sounds normal. No organomegaly. No abdominal bruits. Extremities: reveal no edema. No clubbing or cyanosis Neurologically awake, alert, oriented x3 with well-coordinated movements. No focal deficits noted Skin: No rash or skin lesions. Psychiatric: Coperative. Nonsuicidal Musculoskeletal: No joint swelling or deformity. Normal range of motion. Vital Signs Temp 98.6 F 06/16/20 07:00 Pulse 95 06/16/20 11:47 Resp 18 07/18/20 08:25 BP 130/83 06/16/20 07:00 Pulse Ox 93 L 06/16/20 08:08 Intake & Output 06/15/20 06/16/20 06/16/20 18:59 06:59 18:59 Intake Total 400 200 Balance 400 200 Intake: Intake, IV Titration 400 Amount Sodium Chloride 0.9% 1, 400 000 ml @ 100 mls/hr IV . Q10H [facility] Rx#:[id number] Oral 200 Other: Voiding Method Toilet Toilet Toilet # Voids 1 Patient Condition at Discharge: Fair Plan - Discharge Summary New Discharge Prescriptions: New Cyclobenzaprine [Flexeril] 5 mg PO BID PRN #14 tab PRN Reason: back spasm Continue Omeprazole 20 mg PO DAILY Albuterol Nebulized [Ventolin Nebulized] 2.5 mg INHALATION RT-QID PRN PRN Reason: Shortness Of Breath Hydrocodone/Acetaminophen [[place] 10-325] 1 tab PO Q6H PRN PRN Reason: Pain Ibuprofen/Pseudoephedrine HCl [Advil Cold & Sinus Caplet] 1 tab PO Q5H PRN PRN Reason: Cold Symptoms Discharge Medication List Albuterol Nebulized [Ventolin Nebulized] 2.5 mg INHALATION RT-QID PRN 06/12/20 [History] Hydrocodone/Acetaminophen [[place] 10-325] 1 tab PO Q6H PRN 06/12/20 [History] Ibuprofen/Pseudoephedrine HCl [Advil Cold & Sinus Caplet] 1 tab PO Q5H PRN 06/12/20 [History] Omeprazole 20 mg PO DAILY 06/12/20 [History] Cyclobenzaprine [Flexeril] 5 mg PO BID PRN #14 tab 06/16/20 [Rx] Follow up Appointment(s)/Referral(s): Cristian Ulrich MD [STAFF PHYSICIAN] - 1-2 Days (Office closed. Please call Thursday.) Adsi Anderson DO [Primary Care Provider] - 1-2 days (Office closed please call Thursday.) Kermit Sandoval MD [STAFF PHYSICIAN] - 1 Week (Office closed please call Thursday.) Patient Instructions/Handouts: COPD (Chronic Obstructive Pulmonary Disease) (DC) Discharge Disposition: HOME SELF-CARE
== END 2020-06-16 15:38 | disposition home or self-care (01) | DRG 181 ==
LOC: EC 18:28 → 5NMEDONC 19:35 → 4SSUR 06-13 15:01 → OBSVTOIN 06-14 15:36
PROVIDERS: ADMIT Internal Medicine; ATTEND Internal Medicine
PROC: 0BB38ZX Excision of Right Main Bronchus, Via Natural or Artificial Opening Endoscopic, Diagnostic (ICD-10-PCS; principal; 2020-06-13 08:20)
PROC: 0BB38ZZ Excision of Right Main Bronchus, Via Natural or Artificial Opening Endoscopic (ICD-10-PCS; principal; 2020-06-13 08:20)
DX: C34.91 Malignant neoplasm of unspecified part of right bronchus or lung (principal); R04.2 Hemoptysis; E87.2 Acidosis; J98.11 Atelectasis; J44.1 Chronic obstructive pulmonary disease with (acute) exacerbation; J90 Pleural effusion, not elsewhere classified; E87.1 Hypo-osmolality and hyponatremia; E86.1 Hypovolemia; E86.0 Dehydration; E78.5 Hyperlipidemia, unspecified; Z20.828 Contact with and (suspected) exposure to other viral communicable diseases; I10 Essential (primary) hypertension; F17.200 Nicotine dependence, unspecified, uncomplicated; E87.6 Hypokalemia; K57.90 Diverticulosis of intestine, part unspecified, without perforation or abscess without bleeding; Z82.49 Family history of ischemic heart disease and other diseases of the circulatory system; Z83.3 Family history of diabetes mellitus; Z82.3 Family history of stroke
CPT/HCPCS: 31625; 36415; 70553; 71046; 71275; 74177; 77290; 77293; 77295; 77300; 77332; 77334; 77412; 77470; 80048; 80053; 82550; 83605; 83735; 83880; 84484; 85025; 85379; 85610; 85730; 88305; 88341; 88342; 93005; 94640; 94760; 96360; 99285

== ENCOUNTER → 2020-06-22 | Outpatient (CLI) | payer OTHER ==
--- NOTE | 2020-06-24 16:19 | PE ---
Nuclear medicine PET/CT HISTORY: Lung carcinoma, initial Patient received 9.9 mCi F-18 FDG intravenously in delayed scanning was performed from the skull base to the mid thighs. Localization and attenuation correction CT scan was performed., Correlation CT ch est 06/12/2020, abdomen pelvis 06/14/2020 Chest and neck: There is no supraclavicular or cervical adenopathy. No mediastinal uptake is seen. Th e patient's right upper lobe lung mass shows associated hypermetabolic uptake extends into the right hilar region, there is deformity of the right mainstem bronchus. Abnormal uptake also extending into the right lower lobe with abnormal associated soft tissue as noted on prior CT extends into the pleur al margins medially and posteriorly, spiculated attenuation extending to the right hemithorax apex, a bnormal soft tissue noted at this level. There is no pleural pericardial effusion. There are coronary artery calcifications. ABDOMEN: Left adrenal mass shows no associated uptake. There is no retroperitoneal adenopathy or asci sachin. Diverticular changes extensive within the sigmoid colon. Colonic uptake likely is physiologic. Osseous structures show no suspicious uptake. IMPRESSION: Abnormal uptake within the right upper lobe and right lower lobe extending into the right hilum.
== END | disposition home or self-care (01) ==
LOC: RADPETMAIN 14:53
PROVIDERS: ATTEND Internal Medicine Hematology & Oncology
DX: C34.11 Malignant neoplasm of upper lobe, right bronchus or lung (principal)
CPT/HCPCS: 78815; A9552

== ENCOUNTER 2022-02-20 12:43 | Inpatient (IN) | payer OTHER ==
[2022-02-20 14:32] LABS: Basophils % (A) 1 %; Eosinophils # (A) 0.2 k/uL (0-0.7); Eosinophils % (A) 2 %; HCT 41.2 % (39.0-53.0); HGB 13.6 gm/dL (13.0-17.5); Lymphocytes # (A) 0.7 k/uL (1.0-4.8); Lymphocytes % (A) 8 %; MCH 33.9 pg (25.0-35.0); MCHC 33.1 g/dL (31.0-37.0); MCV 102.4 fL (80.0-100.0); Macrocytosis Slight; Mean Platelet Volume 7.8; Monocytes # (A) 0.6 k/uL (0-1.0); Monocytes % (A) 7 %; Neutrophils # (A) 6.7 k/uL (1.3-7.7); Neutrophils % (A) 81 %; Platelet Count 304 k/uL (150-450); RBC 4.02 m/uL (4.30-5.90); RDW 12.8 % (11.5-15.5); WBC 8.3 k/uL (3.8-10.6)
--- NOTE | 2022-02-20 15:22 | XR ---
EXAMINATION TYPE: XR chest 2V DATE OF EXAM: 02/20/2022 COMPARISON: 06/12/2020 INDICATION: Weakness difficulty breathing TECHNIQUE: Frontal and lateral views of the chest are obtained. FINDINGS: The heart size is normal. The pulmonary vasculature is normal. There is some stranding in the right suprahilar region. Some tenting of the right diaphragm is noted. IMPRESSION: 1. Underlying right suprahilar mass change in appearance from CT of 06/12/2020. Consider follow-up CT chest to reevaluate. 2. Suspected small amount of atelectasis of the right diaphragm.
[2022-02-20 15:25] LABS: ALT 14 U/L (4-49); AST 46 U/L (17-59); African American GFR (CKD) >90 (>60 ml/min/1.73 sqM); Albumin 2.5 g/dL (3.5-5.0); Alkaline Phosphatase 269 U/L (38-126); Anion Gap 4 mmol/L; Blood Urea Nitrogen 5 mg/dL (9-20); Calcium 9.1 mg/dL (8.4-10.2); Carbon Dioxide 35 mmol/L (22-30); Chloride 84 mmol/L (98-107); Glucose 114 mg/dL (74-99); Non-African American GFR(CKD) >90 (>60 ml/min/1.73 sqM); Potassium 3.2 mmol/L (3.5-5.1); Sodium 123 mmol/L (137-145); Total Protein 5.8 g/dL (6.3-8.2)
[2022-02-20] MEDS ORDERED: SODIUM CHLORIDE 0.9% 1,000 ML IV SCH (17:15)
[2022-02-20] MEDS ORDERED: NALOXONE 0.4 MG/ML 1 ML VIAL IV PRN (17:30)
--- NOTE | 2022-02-20 17:35 | ED ---
General Adult HPI - General Chief complaint: Recheck/Abnormal Lab/Rx Stated complaint: LILIA Time Seen by Provider: 02/20/22 13:31 Source: patient, family, RN notes reviewed, old records reviewed Mode of arrival: wheelchair Limitations: no limitations - History of Present Illness Initial comments: 61-year-old male with previous history of metastatic lung cancer presenting with increased weakness, abdominal distention, lower extremity edema. Patient has not been on treatment for his lung cancer for the past 2 years. He states that his symptoms have progressed over the course of several weeks. He denies fever. Denies central chest pain. Denies cough. Denies dysuria. - Related Data Home Medications Medication Instructions Recorded Confirmed Omeprazole Magnesium [PriLOSEC OTC] 20 mg PO DAILY 02/20/22 02/20/22 Allergies Allergy/AdvReac Type Severity Reaction Status Date / Time No Known Allergies Allergy Verified 02/20/22 14:05 Review of Systems ROS Statement: Those systems with pertinent positive or pertinent negative responses have been documented in the HPI. ROS Other: All systems not noted in ROS Statement are negative. Past Medical History Past Medical History: Cancer, Hyperlipidemia Additional Past Medical History / Comment(s): DDD neck, carpal tunnel. lung cancer History of Any Multi-Drug Resistant Organisms: None Reported Past Surgical History: Orthopedic Surgery Additional Past Surgical History / Comment(s): left ankle surgery 30 years ago. Past Anesthesia/Blood Transfusion Reactions: No Reported Reaction Past Psychological History: No Psychological Hx Reported Smoking Status: Former smoker Past Alcohol Use History: Abuse, Daily, Occasional Past Drug Use History: None Reported, Marijuana - Past Family History Father Family Medical History: Diabetes Mellitus Mother Family Medical History: CVA/TIA, Diabetes Mellitus Additional Family Medical History / Comment(s): at 82 Brother(s) Family Medical History: Coronary Artery Disease (CAD), Myocardial Infarction (HI) Additional Family Medical History / Comment(s): 2015 General Exam Limitations: no limitations General appearance: alert, in no apparent distress Head exam: Present: atraumatic, normocephalic Eye exam: Present: normal appearance, PERRL ENT exam: Present: mucous membranes dry Respiratory exam: Present: normal lung sounds bilaterally, decreased breath sounds. Absent: respiratory distress Cardiovascular Exam: Present: normal rhythm, tachycardia GI/Abdominal exam: Present: soft, distended. Absent: tenderness, guarding, rebound Extremities exam: Present: pedal edema Neurological exam: Present: alert, oriented X3, CN II-XII intact. Absent: motor sensory deficit Psychiatric exam: Present: normal affect, normal mood Skin exam: Present: warm, dry, intact. Absent: cyanosis, diaphoretic Course Vital Signs 02/20/22 12:55 Temperature 97.1 F L Pulse Rate 75 Respiratory 20 Rate Blood Pressure 111/69 O2 Sat by Pulse 99 Oximetry EKG Findings - EKG Comments: EKG Findings:: Sinus tachycardia, incomplete right bundle branch block, rate of 111, NV interval 139, QRS duration 116, QTC 446, no ST segment elevation. Procedures - Warren Protocol (Time Out) Nurse: Mayi Ellis Medical Decision Making - Medical Decision Making 61-year-old male presenting with increased weakness, lower extremity edema and abdominal distention. History of metastatic lung cancer. Chest x-ray does show hilar mass. He has a sodium of 123. He has a lactic acid 3.5 which I suspect is from decreased intravascular fluid status and poor perfusion rather than sepsis. He has an albumin of 2.5 which is likely contributing to his peripheral edema. I suspect the pain may be recurrence of cancer. He will be admitted predominantly for the hyponatremia and lactic acidosis. Case discussed with Dr. Kilgore who will admit. - Lab Data Result diagrams: 02/20/22 14:16 02/20/22 14:48 Lab Results 02/20/22 02/20/22 02/20/22 Range/Units 14:16 14:16 14:16 WBC 8.3 (3.8-10.6) k/uL RBC 4.02 L (4.30-5.90) m/uL Hgb 13.6 (13.0-17.5) gm/dL Hct 41.2 (39.0-53.0) % MCV 102.4 H (80.0-100.0) fL MCH 33.9 (25.0-35.0) pg MCHC 33.1 (31.0-37.0) g/dL RDW 12.8 (11.5-15.5) % Plt Count 304 (150-450) k/uL MPV 7.8 Neutrophils % 81 % Lymphocytes % 8 % Monocytes % 7 % Eosinophils % 2 % Basophils % 1 % Neutrophils # 6.7 (1.3-7.7) k/uL Lymphocytes # 0.7 L (1.0-4.8) k/uL Monocytes # 0.6 (0-1.0) k/uL Eosinophils # 0.2 (0-0.7) k/uL Basophils # 0.0 (0-0.2) k/uL Macrocytosis Slight Sodium (137-145) mmol/L Potassium (3.5-5.1) mmol/L Chloride (98-107) mmol/L Carbon Dioxide (22-30) mmol/L Anion Gap mmol/L BUN (9-20) mg/dL Creatinine (0.66-1.25) mg/dL Est GFR (CKD-EPI)AfAm (>60 ml/min/1.73 sqM) Est GFR (CKD-EPI)NonAf (>60 ml/min/1.73 sqM) Glucose (74-99) mg/dL Lactic Ac Sepsis Rflx Plasma Lactic Acid John 3.5 H* (0.7-2.0) mmol/L Calcium (8.4-10.2) mg/dL Total Bilirubin (0.2-1.3) mg/dL AST (17-59) U/L ALT (4-49) U/L Alkaline Phosphatase (38-126) U/L NT-Pro-B Natriuret Pep 767 pg/mL Total Protein (6.3-8.2) g/dL Albumin (3.5-5.0) g/dL 02/20/22 02/20/22 Range/Units 14:48 15:30 WBC (3.8-10.6) k/uL RBC (4.30-5.90) m/uL Hgb (13.0-17.5) gm/dL Hct (39.0-53.0) % MCV (80.0-100.0) fL MCH (25.0-35.0) pg MCHC (31.0-37.0) g/dL RDW (11.5-15.5) % Plt Count (150-450) k/uL MPV Neutrophils % % Lymphocytes % % Monocytes % % Eosinophils % % Basophils % % Neutrophils # (1.3-7.7) k/uL Lymphocytes # (1.0-4.8) k/uL Monocytes # (0-1.0) k/uL Eosinophils # (0-0.7) k/uL Basophils # (0-0.2) k/uL Macrocytosis Sodium 123 L (137-145) mmol/L Potassium 3.2 L (3.5-5.1) mmol/L Chloride 84 L (98-107) mmol/L Carbon Dioxide 35 H (22-30) mmol/L Anion Gap 4 mmol/L BUN 5 L (9-20) mg/dL Creatinine 0.75 (0.66-1.25) mg/dL Est GFR (CKD-EPI)AfAm >90 (>60 ml/min/1.73 sqM) Est GFR (CKD-EPI)NonAf >90 (>60 ml/min/1.73 sqM) Glucose 114 H (74-99) mg/dL Lactic Ac Sepsis Rflx Y Plasma Lactic Acid John (0.7-2.0) mmol/L Calcium 9.1 (8.4-10.2) mg/dL Total Bilirubin 2.0 H (0.2-1.3) mg/dL AST 46 (17-59) U/L ALT 14 (4-49) U/L Alkaline Phosphatase 269 H (38-126) U/L NT-Pro-B Natriuret Pep pg/mL Total Protein 5.8 L (6.3-8.2) g/dL Albumin 2.5 L (3.5-5.0) g/dL Disposition Clinical Impression: Lactic acid acidosis, Hyponatremia Disposition: ADMITTED IP TO THIS [facility] Condition: Stable Is patient prescribed a controlled substance at d/c from ED?: No Referrals: Adis Anderson DO [Primary Care Provider] - 1-2 days Decision to Admit Reason: Admit from EC Decision Date: 02/20/22 Decision Time: 17:35
--- NOTE | 2022-02-20 18:09 | CT ---
EXAMINATION TYPE: CT ChestAbdPelvis wo con DATE OF EXAM: 02/20/2022 COMPARISON: 06/22/20 11 HISTORY: Abdominal distention. History of lung cancer. CT DLP: 1122.8 mGycm. Automated Exposure Control for Dose Reduction was Utilized. TECHNIQUE: CT scan of the thorax, abdomen and pelvis is performed without IV contrast. CHEST FINDINGS LUNGS: Right hilar and upper lung cicatrizing changes noted, with small right pleural effusion. Left lung is clear and well expanded, and left pleural space is negative. MEDIASTINUM: There are no greater than 1 cm hilar or mediastinal lymph nodes. Prominent left and righ t coronary calcifications noted. No pericardial effusion is seen. OTHER: No bone lesions or additional significant abnormality is seen. ABDOMEN/PELVIS FINDINGS: PERITONEAL CAVITY: There is marked ascites throughout the abdomen and pelvis. No pneumoperitoneum. LIVER/GB: No significant abnormality is appreciated. PANCREAS: No significant abnormality is seen. SPLEEN: No significant abnormality is seen. ADRENALS: No significant abnormality is seen. KIDNEYS: No significant abnormality is seen. BOWEL: No bowel obstruction. LYMPH NODES: No greater than 1cm abdominal or pelvic lymph nodes are appreciated. OSSEOUS STRUCTURES: 1 cm defect noted anterior ilium superolaterally (100/150 axial), not seen on abdi or. No other bone findings. OTHER: No significant additional abnormality is seen. IMPRESSION: 1. No acute chest process. 2. Massive peritoneal fluid throughout the abdomen and pelvis. 3. 1 cm bone defect right ilium.
[2022-02-20] MEDS ORDERED: POTASSIUM CHLORIDE ER 20 MEQ TAB.ER PO STA (18:54)
[2022-02-20] MEDS ORDERED: FUROSEMIDE 10 MG/ML 2 ML VIAL IV STA (21:33)
--- NOTE | 2022-02-20 21:50 | P.HPIM ---
History of Present Illness H&P Date: 02/20/22 Chief Complaint: abd distetion 61 -year-old male with metastatic lung cancer not currently on treatment for over 2 years. Patient has poor insight of his overall clinical condition. He denies any other medical problems, he claims that over the past 2 weeks he noticed that his abdomen is rapidly getting bigger associated with new bilateral leg edema generalized weakness and fatigue. He claims that his abdomen became so basic over the past 2 days became difficult for him to breathe he otherwise denies any fevers or chills denies any nausea vomiting denies any abdominal pain however he does report some occasional sharp pain that's short-lived not associated with any activity or precipitating factor that currently he is not experiencing denies any bleeding denies any melena denies any changes with his urine denies any prior history of ascites or abdominal condition he Is currently laying down comfortable watching TV denies any shortness of breath Blood work in the ED showed lactic acidosis and mild hypokalemia, slightly elevated bilirubin and alk phos normal otherwise liver enzymes Computed tomography scan of the abdomen and chest showed worsening/new right suprahilar mass which is changed from CAT scan done in May 2020 Also reported massive ascites otherwise no reported abnormality and spleen liver or pancreas Patient denies any smoking drug abuser , heavy alcohol consumption Review of Systems Pertinent positives as noted in HPI. All other systems were reviewed and are negative Past Medical History Past Medical History: Cancer, Hyperlipidemia Additional Past Medical History / Comment(s): DDD neck, carpal tunnel. lung cancer History of Any Multi-Drug Resistant Organisms: None Reported Past Surgical History: Orthopedic Surgery Additional Past Surgical History / Comment(s): left ankle surgery 30 years ago. Past Anesthesia/Blood Transfusion Reactions: No Reported Reaction Past Psychological History: No Psychological Hx Reported Smoking Status: Former smoker Past Alcohol Use History: Abuse, Daily, Occasional Additional Past Alcohol Use History / Comment(s): quit smoking 1.5 years ago. occasional etoh Past Drug Use History: None Reported, Marijuana Additional Drug Use History / Comment(s): past use of marijuana - Past Family History Father Family Medical History: Diabetes Mellitus Mother Family Medical History: CVA/TIA, Diabetes Mellitus Additional Family Medical History / Comment(s): at 82 Brother(s) Family Medical History: Coronary Artery Disease (CAD), Myocardial Infarction (HI) Additional Family Medical History / Comment(s): 2015 Medications and Allergies Home Medications Medication Instructions Recorded Confirmed Type Omeprazole Magnesium [PriLOSEC OTC] 20 mg PO DAILY 02/20/22 02/20/22 History Allergies Allergy/AdvReac Type Severity Reaction Status Date / Time No Known Allergies Allergy Verified 02/20/22 14:05 Physical Exam Vitals: Vital Signs Temp Pulse Resp BP Pulse Ox 02/20/22 17:44 97.5 F L 110 H 18 114/89 99 02/20/22 12:55 97.1 F L 75 20 111/69 99 Intake and Output 02/20/22 02/20/22 02/20/22 06:59 14:59 22:59 Intake Total 485 Balance 485 Intake: Oral 485 Other: Weight 99.79 kg 99.79 kg Constitutional: No acute distress, conversant, pleasant Eyes: Slight scleral jaundice, moist conjunctiva, Pupils equal round reactive to light ENMT: NC/AT Oropharynx clear, no erythema, or exudates Neck: Supple, no masses, or JVD No carotid bruits No thyromegaly Lungs: Clear to auscultation Clear to percussion Normal respiratory effort, no accessory muscle use Cardiovascular: Heart regular in rate and rhythm, No murmurs, gallops, or rubs +2 bilateral peripheral edema Abdominal: Severely distended no tenderness to palpation positive transmitted thrill no guarding, rebound or rigidity Abdomen moving with respiration Normoactive bowel sounds No hepatomegaly, No splenomegaly No palpable mass No abdominal wall hernia noted Skin: Normal temperature, tone, texture, turgor No induration No subcutaneous nodules No rash, lesions No ulcers Extremities: Bilateral pedal and leg edema No digital cyanosis No clubbing Pedal pulses difficult to palpate bilaterally, capillary refill immediate Radial pulses intact and symmetrical No calf tenderness Psychiatric: Alert and oriented to person, place and time Appropriate affect fair judgement Neuro Muscles Strength 4/5 in all 4 extremities Sensation to light touch grossly present throughout Cranial nerves II-XII grossly intact No focal sensory deficits Lymphatics: no palpable cervical or supraclavicular , or inguinal lymph nodes Results CBC & Chem 7: 02/20/22 14:16 02/20/22 14:48 Labs: Abnormal Lab Results - Last 24 Hours (Table) 02/20/22 02/20/22 02/20/22 Range/Units 14:16 14:16 14:48 RBC 4.02 L (4.30-5.90) m/uL MCV 102.4 H (80.0-100.0) fL Lymphocytes # 0.7 L (1.0-4.8) k/uL Sodium 123 L (137-145) mmol/L Potassium 3.2 L (3.5-5.1) mmol/L Chloride 84 L (98-107) mmol/L Carbon Dioxide 35 H (22-30) mmol/L BUN 5 L (9-20) mg/dL Glucose 114 H (74-99) mg/dL Plasma Lactic Acid John 3.5 H* (0.7-2.0) mmol/L Total Bilirubin 2.0 H (0.2-1.3) mg/dL Alkaline Phosphatase 269 H (38-126) U/L Total Protein 5.8 L (6.3-8.2) g/dL Albumin 2.5 L (3.5-5.0) g/dL / Range/Units 18:01 RBC (4.30-5.90) m/uL MCV (80.0-100.0) fL Lymphocytes # (1.0-4.8) k/uL Sodium (137-145) mmol/L Potassium (3.5-5.1) mmol/L Chloride (98-107) mmol/L Carbon Dioxide (22-30) mmol/L BUN (9-20) mg/dL Glucose (74-99) mg/dL Plasma Lactic Acid John 2.4 H* (0.7-2.0) mmol/L Total Bilirubin (0.2-1.3) mg/dL Alkaline Phosphatase (38-126) U/L Total Protein (6.3-8.2) g/dL Albumin (3.5-5.0) g/dL Assessment and Plan Assessment: massive ascites with history of metastatic lung cancer not currently on treatment IR for paracentesis,send ascitic fluid for analysis (diagnostic and theraputic) lactic acidosis improved IV diuresis d/c IVF resume protonix monitor vital signs supplemental oxygen as needed fall precautions regular diet moderate hypervolemic hyponatremia d/c IVF IV diuresis follow up electrolytes mild hypokalemia , replace and follow up levels full code DVT prophylaxis heparin subcu 3 times a day Anticipated length of stay less than 2 midnights
[2022-02-20] MEDS: MORPHINE SULFATE 2 MG/ML SYRINGE IVP PRN (22:12)
[2022-02-20] MEDS: MELATONIN 3 MG TABLET PO SCH (22:13)
[2022-02-20] MEDS: HEPARIN SODIUM,PORCINE/PF 5,000 UNIT/0.5 ML SYRINGE SQ SCH (23:59)
[2022-02-21] MEDS: PANTOPRAZOLE 40 MG TABLET PO SCH (06:27)
[2022-02-21] MEDS: HEPARIN SODIUM,PORCINE/PF 5,000 UNIT/0.5 ML SYRINGE SQ SCH ×3 (08:40→23:10)
[2022-02-21 09:57] LABS: Basophils # (A) 0.1 k/uL (0-0.2); Basophils % (A) 1 %; Eosinophils # (A) 0.3 k/uL (0-0.7); Eosinophils % (A) 4 %; HCT 38.7 % (39.0-53.0); HGB 12.4 gm/dL (13.0-17.5); Lymphocytes # (A) 0.8 k/uL (1.0-4.8); Lymphocytes % (A) 12 %; MCH 33.7 pg (25.0-35.0); MCHC 31.9 g/dL (31.0-37.0); MCV 105.6 fL (80.0-100.0); Macrocytosis Slight; Mean Platelet Volume 7.7; Monocytes # (A) 0.6 k/uL (0-1.0); Monocytes % (A) 9 %; Neutrophils % (A) 72 %; Platelet Count 232 k/uL (150-450); RBC 3.67 m/uL (4.30-5.90); RDW 12.3 % (11.5-15.5); WBC 6.9 k/uL (3.8-10.6)
[2022-02-21 10:02] LABS: ALT 13 U/L (4-49); AST 37 U/L (17-59); African American GFR (CKD) >90 (>60 ml/min/1.73 sqM); Albumin 2.3 g/dL (3.5-5.0); Alkaline Phosphatase 255 U/L (38-126); Anion Gap 5 mmol/L; Blood Urea Nitrogen 6 mg/dL (9-20); Calcium 8.8 mg/dL (8.4-10.2); Carbon Dioxide 31 mmol/L (22-30); Chloride 87 mmol/L (98-107); Glucose 110 mg/dL (74-99); Non-African American GFR(CKD) >90 (>60 ml/min/1.73 sqM); Potassium 3.7 mmol/L (3.5-5.1); Sodium 123 mmol/L (137-145); Total Bilirubin 1.7 mg/dL (0.2-1.3); Total Protein 5.5 g/dL (6.3-8.2)
[2022-02-21 11:54] LABS: INR 2.3 (<1.2)
[2022-02-21 11:55] LABS: Prothrombin Time 22.6 sec (9.0-12.0)
[2022-02-21] MEDS ORDERED: FUROSEMIDE 10 MG/ML 4 ML VIAL IV STA (12:28)
[2022-02-21] MEDS: SPIRONOLACTONE 25 MG TAB PO SCH (16:41)
[2022-02-21] MEDS ORDERED: ALBUMIN HUMAN 25% 50 ML in EMPTY BAG 1 BAG IVPB SCH (18:00)
--- NOTE | 2022-02-21 18:06 | P.PN ---
Subjective Progress Note Date: 02/21/22 61 -year-old male with metastatic lung cancer not currently on treatment for over 2 years. Patient has poor insight of his overall clinical condition. He denies any other medical problems, he claims that over the past 2 weeks he noticed that his abdomen is rapidly getting bigger associated with new bilateral leg edema generalized weakness and fatigue. He claims that his abdomen became so distended over the past 2 days became difficult for him to breathe he otherwise denies any fevers or chills denies any nausea vomiting denies any abdominal pain however he does report some occasional sharp pain that's short-lived not associated with any activity or precipitating factor that currently he is not experiencing denies any bleeding denies any melena denies any changes with his urine denies any prior history of ascites or abdominal condition Today patient denies any acute complaints. He states that 2 years ago his lung cancer was treated with radiation and chemotherapy. He states that he was not able to get a repeat computed tomography scan because his insurance would not pay for it. I discussed with the nurse who said that patient is able to get up and use the bathroom on his own. Family also brought in paperwork with advanced directive with patient wanted to be DNR/DNI. 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 Psych - Calm and cooperative - Labs CBC & Chem 7: 02/21/22 09:01 02/21/22 09:01 Labs: Abnormal Lab Results - Last 24 Hours (Table) 02/20/22 02/21/22 02/21/22 Range/Units 18:01 09:01 09:01 RBC 3.67 L (4.30-5.90) m/uL Hgb 12.4 L (13.0-17.5) gm/dL Hct 38.7 L (39.0-53.0) % MCV 105.6 H (80.0-100.0) fL Lymphocytes # 0.8 L (1.0-4.8) k/uL PT (9.0-12.0) sec INR (<1.2) Sodium 123 L (137-145) mmol/L Chloride 87 L (98-107) mmol/L Carbon Dioxide 31 H (22-30) mmol/L BUN 6 L (9-20) mg/dL Glucose 110 H (74-99) mg/dL Plasma Lactic Acid John 2.4 H* (0.7-2.0) mmol/L Total Bilirubin 1.7 H (0.2-1.3) mg/dL Alkaline Phosphatase 255 H (38-126) U/L Total Protein 5.5 L (6.3-8.2) g/dL Albumin 2.3 L (3.5-5.0) g/dL 02/21/22 Range/Units 09:01 RBC (4.30-5.90) m/uL Hgb (13.0-17.5) gm/dL Hct (39.0-53.0) % MCV (80.0-100.0) fL Lymphocytes # (1.0-4.8) k/uL PT 22.6 H (9.0-12.0) sec INR 2.3 H (<1.2) Sodium (137-145) mmol/L Chloride (98-107) mmol/L Carbon Dioxide (22-30) mmol/L BUN (9-20) mg/dL Glucose (74-99) mg/dL Plasma Lactic Acid John (0.7-2.0) mmol/L Total Bilirubin (0.2-1.3) mg/dL Alkaline Phosphatase (38-126) U/L Total Protein (6.3-8.2) g/dL Albumin (3.5-5.0) g/dL Assessment and Plan Assessment: #Ascites with history of metastatic lung cancer -Status post paracentesis with 12 L removal -Follow up on fluid analysis and cytology -Suspect malignancy to the peritoneum -We'll start patient on Lasix and spironolactone -We'll have patient follow-up with hematology for cytology results #Hypervolemic hypernatremia -Resume diuretics -No change in sodium #Hypokalemia -Patient started on spironolactone -Repeat electrolytes as needed CODE STATUS:full code DVT prophylaxis: Subcu heparin Anticipated length of stay: Anticipate discharge in [address]: home
--- NOTE | 2022-02-21 18:56 | P.CONS ---
History of Present Illness - Reason for Consult Consult date: 02/21/22 Lung Cancer Requesting physician: Greg Quiñonez - History of Present Illness Jesús presented to [facility] with progressive SOB & hemoptysis, CT Scan of chaest revealed 11.6X5.6 cm Mediastinal mass with R mainstem & RUL bronchus involvement. No mediastinal involvement noted. The patient was evaluated by our service while hospitalized, had negative MRI of brain, bronchoscopy with biopsy by Dr Sandoval revealed NSCLC (Squamous cell). He was evaluated by Dr Hurtado ans started on palliative XRT to chest. The patient had CT Scan in Nov 2019 revealing 3X2 cm RUL mass, he was recommended to have PET Scan & biopsy, but he "put everything" on hold due to COVID situation. The patient smoked 2 PPD X 40 years, quit smoking 8 days ago, consumes 2-3 alcoholic drinks/Day. He is retired. Reported both grandfathers to have of "cancer" 08/29/20: Feels very tired, no stamina. He denies SOB though... He was last seen in 2019, Once he completed concurrent xrt and chemo he did not remain adherent with appointments and never showed back up or returned attempts to schedule. Review of Systems All systems: negative Constitutional: Reports as per HPI Past Medical History Past Medical History: Cancer, Hyperlipidemia Additional Past Medical History / Comment(s): DDD neck, carpal tunnel. lung cancer History of Any Multi-Drug Resistant Organisms: None Reported Past Surgical History: Orthopedic Surgery Additional Past Surgical History / Comment(s): left ankle surgery 30 years ago. Past Anesthesia/Blood Transfusion Reactions: No Reported Reaction Past Psychological History: No Psychological Hx Reported Smoking Status: Former smoker Past Alcohol Use History: Abuse, Daily, Occasional Additional Past Alcohol Use History / Comment(s): quit smoking 1.5 years ago. occasional etoh Past Drug Use History: None Reported, Marijuana Additional Drug Use History / Comment(s): past use of marijuana - Past Family History Father Family Medical History: Diabetes Mellitus Mother Family Medical History: CVA/TIA, Diabetes Mellitus Additional Family Medical History / Comment(s): at 82 Brother(s) Family Medical History: Coronary Artery Disease (CAD), Myocardial Infarction (NM) Additional Family Medical History / Comment(s): 2015 Medications and Allergies Home Medications Medication Instructions Recorded Confirmed Type Omeprazole Magnesium [PriLOSEC OTC] 20 mg PO DAILY 02/20/22 02/20/22 History Allergies Allergy/AdvReac Type Severity Reaction Status Date / Time No Known Allergies Allergy Verified 02/20/22 14:05 Physical Exam Vitals: Vital Signs Temp Pulse Resp BP Pulse Ox 02/20/22 17:44 97.5 F L 110 H 18 114/89 99 02/20/22 12:55 97.1 F L 75 20 111/69 99 Intake and Output 02/20/22 02/20/22 02/21/22 14:59 22:59 06:59 Intake Total 485 Balance 485 Intake: Oral 485 Other: Weight 99.79 kg 99.79 kg - Constitutional General appearance: cooperative - EENT ENT: NA/AT - Neck Neck: normal ROM - Respiratory Respiratory: bilateral: diminished - Cardiovascular Rhythm: regularly irregular - Gastrointestinal General gastrointestinal: distended, tenderness - Integumentary BLE Edema Integumentary: pale - Musculoskeletal Musculoskeletal: generalized weakness Results CBC & Chem 7: 02/21/22 09:01 02/21/22 09:01 Labs: Abnormal Lab Results - Last 24 Hours (Table) 02/20/22 02/20/22 02/20/22 Range/Units 14:16 14:16 14:48 RBC 4.02 L (4.30-5.90) m/uL MCV 102.4 H (80.0-100.0) fL Lymphocytes # 0.7 L (1.0-4.8) k/uL Sodium 123 L (137-145) mmol/L Potassium 3.2 L (3.5-5.1) mmol/L Chloride 84 L (98-107) mmol/L Carbon Dioxide 35 H (22-30) mmol/L BUN 5 L (9-20) mg/dL Glucose 114 H (74-99) mg/dL Plasma Lactic Acid John 3.5 H* (0.7-2.0) mmol/L Total Bilirubin 2.0 H (0.2-1.3) mg/dL Alkaline Phosphatase 269 H (38-126) U/L Total Protein 5.8 L (6.3-8.2) g/dL Albumin 2.5 L (3.5-5.0) g/dL 02/20/22 Range/Units 18:01 RBC (4.30-5.90) m/uL MCV (80.0-100.0) fL Lymphocytes # (1.0-4.8) k/uL Sodium (137-145) mmol/L Potassium (3.5-5.1) mmol/L Chloride (98-107) mmol/L Carbon Dioxide (22-30) mmol/L BUN (9-20) mg/dL Glucose (74-99) mg/dL Plasma Lactic Acid John 2.4 H* (0.7-2.0) mmol/L Total Bilirubin (0.2-1.3) mg/dL Alkaline Phosphatase (38-126) U/L Total Protein (6.3-8.2) g/dL Albumin (3.5-5.0) g/dL CT scan - abdomen: report reviewed CT scan - chest: report reviewed CT scan - pelvis: report reviewed Assessment and Plan (1) Hyponatremia Current Visit: Yes Status: Acute Code(s): E87.1 - HYPO-OSMOLALITY AND HYPONATREMIA SNOMED Code(s): 95970072 (2) Acute exacerbation of chronic obstructive pulmonary disease Current Visit: No Status: Acute Code(s): J44.1 - CHRONIC OBSTRUCTIVE PULMONARY DISEASE W (ACUTE) EXACERBATION SNOMED Code(s): 308886788 (3) Neoplasm of hilus of right lung Narrative/Plan: Definitive treatment concurrent and Radiation in 2019, never returned for recommended follow-up. Current Visit: No Status: Acute Code(s): D49.1 - NEOPLASM OF UNSPECIFIED BEHAVIOR OF RESPIRATORY SYSTEM SNOMED Code(s): 716924442
[2022-02-21] MEDS: MELATONIN 3 MG TABLET PO SCH (20:33)
[2022-02-21] MEDS: ALBUMIN HUMAN 25% 50 ML in EMPTY BAG 1 BAG IVPB SCH ×2 (20:35→21:43)
[2022-02-21] MEDS: MORPHINE SULFATE 2 MG/ML SYRINGE IVP PRN (23:11)
[2022-02-21 23:20] LABS: Amylase, Fluid Source Ascites; Amylase,Body Fluid 5 U/L; Glucose, BF Source Ascites; Glucose, Body Fluid 120 mg/dL; LDH, Body Fluid Source Ascites; T. Protein, Body Fluid Source Ascites; Total Protein, Body Fluid 1050 mg/dL
[2022-02-22 00:17] LABS: Appearance,BF Clear
[2022-02-22] MEDS: PANTOPRAZOLE 40 MG TABLET PO SCH (07:27)
[2022-02-22 08:12] LABS: African American GFR (CKD) >90 (>60 ml/min/1.73 sqM); Anion Gap 0 mmol/L; Blood Urea Nitrogen 6 mg/dL (9-20); Calcium 8.4 mg/dL (8.4-10.2); Carbon Dioxide 36 mmol/L (22-30); Chloride 89 mmol/L (98-107); Glucose 92 mg/dL (74-99); Non-African American GFR(CKD) >90 (>60 ml/min/1.73 sqM); Potassium 2.9 mmol/L (3.5-5.1); Sodium 125 mmol/L (137-145)
[2022-02-22] MEDS: SPIRONOLACTONE 25 MG TAB PO SCH (08:43)
[2022-02-22] MEDS: HEPARIN SODIUM,PORCINE/PF 5,000 UNIT/0.5 ML SYRINGE SQ SCH ×3 (08:44→23:38)
--- NOTE | 2022-02-22 13:59 | P.PN ---
Subjective Progress Note Date: 02/22/22 61 -year-old male with metastatic lung cancer not currently on treatment for over 2 years. Patient has poor insight of his overall clinical condition. He denies any other medical problems, he claims that over the past 2 weeks he noticed that his abdomen is rapidly getting bigger associated with new bilateral leg edema generalized weakness and fatigue. He claims that his abdomen became so distended over the past 2 days became difficult for him to breathe he otherwise denies any fevers or chills denies any nausea vomiting denies any abdominal pain however he does report some occasional sharp pain that's short-lived not associated with any activity or precipitating factor that currently he is not experiencing denies any bleeding denies any melena denies any changes with his urine denies any prior history of ascites or abdominal condition 02/21/2022: Patient had paracentesis with 12 L fluid removal. Fluid analysis is negative for SBP 02/22/2022: Patient states that he has pain all over. He states that he does not want chemotherapy anymore. I discussed with the patient's sister who said that patient will not follow up with oncology. She states that he just wants to be comfortable. She is requesting for hospice to arrange for home care. I went back and spoke with the patient and he confirmed to me that he just was comfortable and wants to go home with hospice. Objective - Vital Signs Vital signs: Vital Signs Temp 98.0 F 02/22/22 13:31 Pulse 106 H 02/22/22 13:31 Resp 18 02/22/22 13:31 BP 99/66 02/22/22 13:31 Pulse Ox 97 02/22/22 13:31 Intake & Output 02/21/22 02/22/22 02/22/22 18:59 06:59 18:59 Intake Total 1020 1070 Output Total 2450 Balance 1020 -1380 Intake: Intake, IV Titration 100 Amount Albumin Human 25% 50 ml 50 In Empty Bag 1 bag @ 50 mls/hr IVPB Q1H [facility] Rx#: [id number] Albumin Human 25% 50 ml 50 In Empty Bag 1 bag @ 50 mls/hr IVPB Q1H CHEL Rx#: [id number] Oral 1020 970 Output: Urine 2450 Other: Voiding Method Urinal Toilet Toilet Urinal Urinal # Voids 2 - Exam General examination - Alert and Oriented 3 in NAD Heart - + S1S2 no murmurs Lungs - Clear to auscultation Abdomen soft, no tenderness to palpate Extremities - +2 pitting edema CLEANER - Moving all 4 extremities spontaneously Psych - Calm and cooperative - Labs CBC & Chem 7: 02/21/22 09:01 02/22/22 07:36 Labs: Abnormal Lab Results - Last 24 Hours (Table) 02/22/22 Range/Units 07:36 Sodium 125 L (137-145) mmol/L Potassium 2.9 L (3.5-5.1) mmol/L Chloride 89 L (98-107) mmol/L Carbon Dioxide 36 H (22-30) mmol/L BUN 6 L (9-20) mg/dL Microbiology - Last 24 Hours (Table) 02/21/22 15:40 Body Fluid Culture - Preliminary Ascites Fluid 02/21/22 15:40 Anaerobic Culture - Preliminary Ascites Fluid Assessment and Plan Assessment: #Ascites with history of metastatic lung cancer -Status post paracentesis with 12 L removal -Follow up on fluid analysis and cytology -Suspect malignancy to the peritoneum -We'll start patient on Lasix and spironolactone -Patient with known lung cancer stage III. He is to follow-up for his radiation chemotherapy treatments. Patient states that he would like to go home with hospice. -Computed tomography scan negative for liver cirrhosis. Likely etiology of his ascites is malignancy. #Hypervolemic hypernatremia -Resume diuretics -Improving #Hypokalemia -Patient started on spironolactone -Repeat electrolytes as needed CODE STATUS:full code DVT prophylaxis: Subcu heparin Anticipated length of stay: Anticipate discharge in [address]: home with hospice
[2022-02-22] MEDS: POTASSIUM CHLORIDE ER 20 MEQ TAB.ER PO SCH (15:49)
[2022-02-22] MEDS: MORPHINE SULFATE 2 MG/ML SYRINGE IVP PRN (20:41)
[2022-02-22] MEDS: MELATONIN 3 MG TABLET PO SCH (20:41)
[2022-02-23] MEDS: HEPARIN SODIUM,PORCINE/PF 5,000 UNIT/0.5 ML SYRINGE SQ SCH ×3 (08:56→22:33)
[2022-02-23] MEDS: SPIRONOLACTONE 25 MG TAB PO SCH ×2 (08:56→19:40)
[2022-02-23] MEDS: PANTOPRAZOLE 40 MG TABLET PO SCH (08:56)
[2022-02-23 10:13] LABS: African American GFR (CKD) >90 (>60 ml/min/1.73 sqM); Anion Gap 5 mmol/L; Blood Urea Nitrogen 6 mg/dL (9-20); Calcium 8.7 mg/dL (8.4-10.2); Carbon Dioxide 32 mmol/L (22-30); Chloride 86 mmol/L (98-107); Glucose 94 mg/dL (74-99); Non-African American GFR(CKD) >90 (>60 ml/min/1.73 sqM); Potassium 3.3 mmol/L (3.5-5.1); Sodium 123 mmol/L (137-145)
[2022-02-23] MEDS ORDERED: POTASSIUM CHLORIDE ER 20 MEQ TAB.ER PO STA (11:47)
--- NOTE | 2022-02-23 11:54 | P.PN ---
Subjective Progress Note Date: 02/23/22 61 -year-old male with metastatic lung cancer not currently on treatment for over 2 years. Patient has poor insight of his overall clinical condition. He denies any other medical problems, he claims that over the past 2 weeks he noticed that his abdomen is rapidly getting bigger associated with new bilateral leg edema generalized weakness and fatigue. He claims that his abdomen became so distended over the past 2 days became difficult for him to breathe he otherwise denies any fevers or chills denies any nausea vomiting denies any abdominal pain however he does report some occasional sharp pain that's short-lived not associated with any activity or precipitating factor that currently he is not experiencing denies any bleeding denies any melena denies any changes with his urine denies any prior history of ascites or abdominal condition 02/21/2022: Patient had paracentesis with 12 L fluid removal. Fluid analysis is negative for SBP 02/22/2022: Patient states that he has pain all over. He states that he does not want chemotherapy anymore. I discussed with the patient's sister who said that patient will not follow up with oncology. She states that he just wants to be comfortable. She is requesting for hospice to arrange for home care. I went back and spoke with the patient and he confirmed to me that he just was comfortable and wants to go home with hospice. 02/23/2022: Patient denies any acute complaints. He stated that the diuretics output with his edema. Patient is looking forward to talking with hospice. 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 spontaneously Psych - Calm and cooperative - Labs CBC & Chem 7: 02/21/22 09:01 02/23/22 09:11 Labs: Abnormal Lab Results - Last 24 Hours (Table) 02/23/22 Range/Units 09:11 Sodium 123 L (137-145) mmol/L Potassium 3.3 L (3.5-5.1) mmol/L Chloride 86 L (98-107) mmol/L Carbon Dioxide 32 H (22-30) mmol/L BUN 6 L (9-20) mg/dL Microbiology - Last 24 Hours (Table) 02/21/22 15:40 Body Fluid Culture - Preliminary Ascites Fluid Assessment and Plan Assessment: #Ascites with history of metastatic lung cancer -Status post paracentesis with 12 L removal -Follow up on fluid analysis and cytology -Suspect malignancy to the peritoneum -We'll start patient on Lasix and spironolactone -Patient with known lung cancer stage III. He is to follow-up for his radiation chemotherapy treatments. Patient states that he would like to go home with hospice. -Computed tomography scan negative for liver cirrhosis. Likely etiology of his ascites is malignancy. -I spoke with the patient's sister who said that patient will not follow up with his appointments. She says that hospice would be appropriate for him. She does not want to wait until patient sees oncology and office to determine plan of care. She would like hospice with home care set up before he is discharged. #Hypervolemic hypernatremia -Resume diuretics -stable #Hypokalemia -Patient started on spironolactone -Repeat electrolytes as needed CODE STATUS:full code DVT prophylaxis: Subcu heparin Anticipated length of stay: Anticipate discharge in [address]: home with hospice
[2022-02-23] MEDS: FUROSEMIDE 20 MG TAB PO SCH (12:02)
[2022-02-23] MEDS: MORPHINE SULFATE 2 MG/ML SYRINGE IVP PRN (18:18)
[2022-02-23] MEDS: MELATONIN 3 MG TABLET PO SCH (19:40)
[2022-02-24] MEDS: PANTOPRAZOLE 40 MG TABLET PO SCH (06:17)
[2022-02-24] MEDS: FUROSEMIDE 20 MG TAB PO SCH (09:15)
[2022-02-24] MEDS: HEPARIN SODIUM,PORCINE/PF 5,000 UNIT/0.5 ML SYRINGE SQ SCH ×3 (09:15→23:29)
[2022-02-24] MEDS: SPIRONOLACTONE 25 MG TAB PO SCH ×2 (09:15→21:34)
[2022-02-24] MEDS: MORPHINE SULFATE 2 MG/ML SYRINGE IVP PRN ×2 (09:16→21:34)
--- NOTE | 2022-02-24 12:39 | P.PN ---
Subjective Progress Note Date: 02/24/22 61 -year-old male with metastatic lung cancer not currently on treatment for over 2 years. Patient has poor insight of his overall clinical condition. He denies any other medical problems, he claims that over the past 2 weeks he noticed that his abdomen is rapidly getting bigger associated with new bilateral leg edema generalized weakness and fatigue. He claims that his abdomen became so distended over the past 2 days became difficult for him to breathe he otherwise denies any fevers or chills denies any nausea vomiting denies any abdominal pain however he does report some occasional sharp pain that's short-lived not associated with any activity or precipitating factor that currently he is not experiencing denies any bleeding denies any melena denies any changes with his urine denies any prior history of ascites or abdominal condition 02/21/2022: Patient had paracentesis with 12 L fluid removal. Fluid analysis is negative for SBP 02/22/2022: Patient states that he has pain all over. He states that he does not want chemotherapy anymore. I discussed with the patient's sister who said that patient will not follow up with oncology. She states that he just wants to be comfortable. She is requesting for hospice to arrange for home care. I went back and spoke with the patient and he confirmed to me that he just was comfortable and wants to go home with hospice. 02/23/2022: Patient denies any acute complaints. He stated that the diuretics output with his edema. Patient is looking forward to talking with hospice. 02/24/2022: Patient denies any acute complaints. I discussed with social sciences research scientist who said that patient will have arrangements made for home with hospice tomorrow Objective - Vital Signs Vital signs: Vital Signs Temp 97.6 F 02/24/22 08:00 Pulse 114 H 02/24/22 08:00 Resp 18 02/24/22 08:00 BP 130/86 02/24/22 08:00 Pulse Ox 96 02/24/22 08:00 Intake & Output 02/23/22 02/24/22 02/24/22 18:59 06:59 18:59 Intake Total 354 240 120 Output Total 1025 Balance 354 -785 120 Intake: Oral 354 240 120 Output: Urine 1025 Other: Voiding Method Toilet Urinal # Bowel Movements 0 - Exam General examination - Alert and Oriented 3 in NAD Heart - + S1S2 no murmurs Lungs - Clear to auscultation Abdomen soft, no tenderness to palpate Extremities - +2 pitting edema 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 He failed to follow-up for his radi ation and chemotherapy treatments two years ago. Patient states that he would like to go home with hospice and does not want anymore chemotherapy. -Computed tomography scan negative for liver cirrhosis. Likely etiology of his ascites is malignancy. -I spoke with the patient's sister who said that patient will not follow up with his appointments. She says that hospice would be appropriate for him. She does not want to wait until patient sees oncology in their office to determine plan of care. She would like hospice with home care set up before he is discharged. #Hypervolemic hypernatremia -Resume diuretics -stable #Hypokalemia -Patient started on spironolactone -Repeat electrolytes as needed CODE STATUS:full code DVT prophylaxis: Subcu heparin Anticipated length of stay: Anticipate discharge in 24 hours. Per insurance case manager home with hospice will be set up tomorrow Anticipated discharge place: home with hospice
--- NOTE | 2022-02-24 12:48 | NM ---
EXAMINATION TYPE: NM bone scan whole body DATE OF EXAM: 02/24/2022 COMPARISON: CT 02/20/2022 PET/CT 06/22/2020 HISTORY: Lung mass, abnormal CT Delayed whole-body scanning was performed following the injection of 23.2 mCi Tc 99m MDP. Images acq uired 3.5 hours post injection. FINDINGS: There is a large soft tissue mass is present along the region of the right gluteus musculat ure on CT, there is mild corresponding abnormal uptake. Uptake within the shoulders, hips, sternoclavicular joints is likely degenerative. Soft tissue uptake is normal. IMPRESSION: Abnormal uptake along the right gluteal region corresponds to a large soft tissue mass present on CT, an interval finding from prior PET/CT. A Yellow level critical message alert has been initiated for Mali Kilgore DO via the [employer] Critical Results System on 02/24/2022 12:46 PM. This message alert has been sent to Mali wynn DO via the preferences provided by the clinician for the receipt of Radiology Critical Findings . Message ID [id number].
--- NOTE | 2022-02-24 18:13 | P.PN ---
Subjective Progress Note Date: 02/24/22 Principal diagnosis: History of Lung Cancer, concern progression Patient was seen and evaluated in follow-up. Bone scan unfortunetly shows suspicion of recurrence and progressive disease gluteal area. Discussed with patient, he has decided on hospice care. Objective - Vital Signs Vital signs: Vital Signs Temp 97.6 F 02/24/22 08:00 Pulse 101 H 02/24/22 13:35 Resp 16 02/24/22 13:35 BP 111/79 02/24/22 12:00 Pulse Ox 93 L 02/24/22 12:00 Intake & Output 02/23/22 02/24/22 02/24/22 18:59 06:59 18:59 Intake Total 354 240 238 Output Total 1025 Balance 354 -785 238 Intake: Oral 354 240 238 Output: Urine 1025 Other: Voiding Method Toilet Urinal # Bowel Movements 0 - Exam Constitutional General appearance: cooperative - EENT ENT: NA/AT - Neck Neck: normal ROM - Respiratory Respiratory: bilateral: diminished - Cardiovascular Rhythm: regularly irregular - Gastrointestinal General gastrointestinal: distended, tenderness - Integumentary BLE Edema Integumentary: pale - Musculoskeletal Musculoskeletal: generalized weakness - Labs CBC & Chem 7: 02/21/22 09:01 02/23/22 09:11 Labs: Microbiology - Last 24 Hours (Table) 02/21/22 15:40 Anaerobic Culture - Preliminary Ascites Fluid 02/21/22 15:40 Body Fluid Culture - Preliminary Ascites Fluid Assessment and Plan (1) Hyponatremia Current Visit: Yes Status: Acute Code(s): E87.1 - HYPO-OSMOLALITY AND HYPONATREMIA SNOMED Code(s): 53554452 (2) Acute exacerbation of chronic obstructive pulmonary disease Current Visit: No Status: Acute Code(s): J44.1 - CHRONIC OBSTRUCTIVE PULMONARY DISEASE W (ACUTE) EXACERBATION SNOMED Code(s): 118308124 (3) Neoplasm of hilus of right lung Narrative/Plan: Definitive treatment concurrent and Radiation in 2019, never returned for recommended follow-up. Now appears to have recurrence and progressive disease, patient does not want to undergo further treatment and plans to go home with hospice. Current Visit: No Status: Acute Code(s): D49.1 - NEOPLASM OF UNSPECIFIED BEHAVIOR OF RESPIRATORY SYSTEM SNOMED Code(s): 292159068 Plan: Dr. Attest: I have completed the full history and physical and agree with above dictation, dictated as as scribe
--- NOTE | 2022-02-24 18:29 | P.PN ---
Progress Note - Text Progress Note Date: 02/24/22 I saw and examined the patient,agree with ADVERTISING EXECUTIVE plan Discussed bone scan and CT scan results with the patient,offered palliative XRT to right gluteal mass,however,he declined. I is reasonable to proceed with hospice care.
[2022-02-24] MEDS: MELATONIN 3 MG TABLET PO SCH (21:34)
[2022-02-24] MEDS ORDERED: ONDANSETRON 4 MG/2 ML VIAL IVP STA (21:43)
[2022-02-24 22:50] VITALS: RESP 18
[2022-02-25] MEDS: PANTOPRAZOLE 40 MG TABLET PO SCH (06:51)
[2022-02-25] MEDS: FUROSEMIDE 20 MG TAB PO SCH (09:19)
[2022-02-25] MEDS: MORPHINE SULFATE 2 MG/ML SYRINGE IVP PRN (09:19)
[2022-02-25] MEDS: HEPARIN SODIUM,PORCINE/PF 5,000 UNIT/0.5 ML SYRINGE SQ SCH ×3 (09:19→23:55)
[2022-02-25] MEDS: SPIRONOLACTONE 25 MG TAB PO SCH ×2 (09:19→21:09)
--- NOTE | 2022-02-25 16:03 | P.PN ---
Subjective Progress Note Date: 02/25/22 (delayed charting seen at 0930) Principal diagnosis: edema Patient is a 61 yo CM with a hx of lung cancer not on treatment for 2 years, HTL, and hx of tobacco abuse who presented to the emergency department with complaints of bilateral lower extremity edema and fatigue. In the ER he was found to have massive ascites. Initial vital signs were within normal limits. Initial blood work showed hyponatremia, potassium 3.2, and elevated alkaline phosphatase as well as elevated bilirubin. His CT abdomen and pelvis showed 1 cm to bone defect in the right ilium as well as the massive peritoneal ascites. Patient was admitted for further monitoring. He was evaluated by oncology. He underwent paracentesis. Bone scan showed abnormal uptake in the right gluteal region corresponding to a large soft tissue mass present on CT. Patient decided he wanted to proceed with hospice care. Patient seen and examined at bedside. Pain is currently tolerable. Morphine helps with does not take the pain away completely. Denies any nausea, vomiting, diarrhea. Has been up and walking to the bathroom. General: non toxic, no distress, appears at stated age Derm: warm, dry Head: atraumatic, normocephalic, symmetric Eyes: EOMI, no lid lag, anicteric sclera Mouth: no lip lesion, mucus membranes moist Cardiovascular: S1S2 reg, no murmur, positive posterior tibial pulse bilateral, Lungs: Course bs bilateral, no rhonchi, no rales , no accessory muscle use Abdominal: soft, nontender to palpation, no guarding, no appreciable organomegaly Ext: no gross muscle atrophy, 1+ edema, no contractures Neuro: CN II-XI grossly intact, no focal neuro deficits Psych: Alert, oriented, flat affect Assessment/plan: Metastatic Non small cell lung cancer- Stage IV Malignant ascites Hypervolemic hyponatremia Hypokalemia Tobacco abuse Continue with diuretics and pain medications for comfort. Patient was discharged but Hospice unable to obtain equipment today and plan will be for discharge in AM. Active Medications Generic Name Dose Route Start Last Admin Trade Name Freq PRN Reason Stop Dose Admin Furosemide 20 mg 02/23/22 09:15 02/25/22 09:19 Furosemide 20 Mg Tab PO 20 mg DAILY CHEL Administration Heparin Sodium (Porcine) 5,000 unit 02/21/22 00:00 02/25/22 09:19 Heparin Sodium,Porcine/Pf 5,000 Unit/0.5 Ml Syringe SQ 5,000 unit Q8HR [facility]HEL Administration Melatonin 3 mg 02/20/22 22:00 02/24/22 21:34 Melatonin 3 Mg Tablet PO 3 mg HS CHEL Administration Morphine Sulfate 4 mg 02/25/22 15:51 Morphine Sulfate 4 Mg/Ml Syringe IVP Q4HR PRN Pain/Discomfort Naloxone HCl 0.2 mg 02/20/22 17:30 Naloxone 0.4 Mg/Ml 1 Ml Vial IV Q2M PRN Opioid Reversal Pantoprazole Sodium 40 mg 02/21/22 07:30 02/25/22 06:51 Pantoprazole 40 Mg Tablet PO 40 mg [id number] CHEL Administration Spironolactone 25 mg 02/23/22 21:00 02/25/22 09:19 Spironolactone 25 Mg Tab PO 25 mg BID CHEL Administration Objective - Vital Signs Vital signs: Vital Signs Temp 98.0 F 02/25/22 08:00 Pulse 113 H 02/25/22 08:00 Resp 18 02/25/22 08:00 BP 119/74 02/25/22 08:00 Pulse Ox 97 02/25/22 08:00 Intake & Output 02/24/22 02/25/22 02/25/22 18:59 06:59 18:59 Intake Total 238 118 190 Output Total 200 Balance 38 118 190 Intake: IV 10 Invasive Line 1 10 Oral 238 118 180 Output: Urine 200 Other: Voiding Method Toilet Toilet Urinal Urinal # Voids 1 - Labs CBC & Chem 7: 02/21/22 09:01 02/23/22 09:11 Labs: Microbiology - Last 24 Hours (Table) 02/21/22 15:40 Body Fluid Culture - Preliminary Ascites Fluid
[2022-02-25] MEDS: MORPHINE SULFATE 4 MG/ML SYRINGE IVP PRN ×2 (18:20→22:32)
[2022-02-25] MEDS: MELATONIN 3 MG TABLET PO SCH (21:09)
[2022-02-26] MEDS: PANTOPRAZOLE 40 MG TABLET PO SCH (06:36)
[2022-02-26] MEDS: MORPHINE SULFATE 4 MG/ML SYRINGE IVP PRN (06:36)
[2022-02-26] MEDS ORDERED: ONDANSETRON 4 MG/2 ML VIAL IVP PRN (09:15)
[2022-02-26 09:20] VITALS: BP 138/85; PULSE 109; TEMP 97.4
[2022-02-26] MEDS: FUROSEMIDE 20 MG TAB PO SCH (09:25)
[2022-02-26] MEDS: HEPARIN SODIUM,PORCINE/PF 5,000 UNIT/0.5 ML SYRINGE SQ SCH (09:25)
[2022-02-26] MEDS: SPIRONOLACTONE 25 MG TAB PO SCH (09:25)
--- NOTE | 2022-02-26 19:17 | P.DS ---
Providers Date of admission: 02/20/22 17:30 Expected date of discharge: 02/26/22 Attending physician: Mali Kilgore DO Consults: 02/20/22 21:52 Consult Physician Routine Consulting Provider: Cristian Ulrich Consult Reason/Comments: lung cancer Do you want consulting provider notified?: Yes, Notify in am Primary care physician: Adis Justin [facility] Course: Discharge Diagnosis: Metastatic Non small cell lung cancer- Stage IV Malignant ascites Hypervolemic hyponatremia Hypokalemia Tobacco abuse Intractable nausea and vomtiing. Hospital Course: Patient is a 61 yo CM with a hx of lung cancer not on treatment for 2 years, HTL, and hx of tobacco abuse who presented to the emergency department with complaints of bilateral lower extremity edema and fatigue. In the ER he was found to have massive ascites. Initial vital signs were within normal limits. Initial blood work showed hyponatremia, potassium 3.2, and elevated alkaline phosphatase as well as elevated bilirubin. His CT abdomen and pelvis showed 1 cm to bone defect in the right ilium as well as the massive peritoneal ascites. Patient was admitted for further monitoring. He was evaluated by oncology. He underwent paracentesis. Bone scan showed abnormal uptake in the right gluteal region corresponding to a large soft tissue mass present on CT. Patient decided he wanted to proceed with hospice care. Arrangements were made. He was subsequently discharged to hospice on 02/26. Patient seen and examined at bedside. Patient got up and took a shower today but then felt extremely short of breath and slightly nauseated along with a cough. He still feels comfortable going home with hospice. Has no other complaints currently. Feels slightly woozy from the morphine but states that his pain is much better controlled. Discussed with hospice nurse and sister will be at home and lives next door and can help him. Vital signs reviewed and stable. General: non toxic, no distress, appears at stated age Derm: warm, dry Head: atraumatic, normocephalic, symmetric Eyes: EOMI, no lid lag, anicteric sclera Mouth: no lip lesion, mucus membranes moist Cardiovascular: S1S2 irreg, no murmur, positive posterior tibial pulse bilateral, Lungs: Decreased breath sounds bilateral, no rhonchi, no rales , no accessory muscle use Abdominal: soft, nontender to palpation, no guarding, no appreciable organomegaly Ext: no gross muscle atrophy, no edema, no contractures Neuro: CN II-XI grossly intact, no focal neuro deficits Psych: Alert, oriented, appropriate affect A total of 32 minutes of time were spent preparing this complex discharge summary . Patient Condition at Discharge: Stable Plan - Discharge Summary Discharge Rx Participant: Yes New Discharge Prescriptions: New Melatonin 3 mg PO HS tablet MORPHINE ORAL ALESSANDRA CONC 20mg/mL [Roxanol Oral Soln Conc 20MG/ML] 10 mg PO Q4H PRN #20 ml PRN Reason: Pain Spironolactone [Aldactone] 25 mg PO BID #60 tab Furosemide [Lasix] 20 mg PO DAILY #30 tab Sennosides [Senna] 8.6 mg PO HS #30 tablet Codeine Phosphate/Guaifenesin [Codeine Phosphate/Guaifenesin 10-100 mg/5 ml] 5 ml PO Q6H 3 Days #60 ml Continue Omeprazole Magnesium [PriLOSEC OTC] 20 mg PO DAILY Discharge Medication List Omeprazole Magnesium [PriLOSEC OTC] 20 mg PO DAILY 02/20/22 [History] Furosemide [Lasix] 20 mg PO DAILY #30 tab 02/25/22 [Rx] MORPHINE ORAL ALESSANDRA CONC 20mg/mL [Roxanol Oral Soln Conc 20MG/ML] 10 mg PO Q4H PRN #20 ml 02/25/22 [Rx] Melatonin 3 mg PO HS tablet 02/25/22 [Rx] Sennosides [Senna] 8.6 mg PO HS #30 tablet 02/25/22 [Rx] Spironolactone [Aldactone] 25 mg PO BID #60 tab 02/25/22 [Rx] Codeine Phosphate/Guaifenesin [Codeine Phosphate/Guaifenesin 10-100 mg/5 ml] 5 ml PO Q6H 3 Days #60 ml 02/26/22 [Rx] Follow up Appointment(s)/Referral(s): Adis Anderson DO [Primary Care Provider] - 1-2 days Patient Instructions/Handouts: Hospice (DC) Discharge Disposition: HOME WITH HOSPICE
--- NOTE | 2022-03-03 08:52 | US ---
Ultrasound-guided paracentesis. DATE OF EXAM: 02/21/2022 CLINICAL HISTORY: Ascites The procedure was discussed with the patient. The risks, complications, benefits, and alternatives we re discussed and any questions were answered. Informed consent was obtained. The patient was placed s upine on the ultrasound table and prepped and draped in the usual sterile fashion. All elements of maximal barrier technique were utilized. Under ultrasound guidance, access into the right lower quadrant was obtained, via the paracentesis catheter system and direct ultrasound guidanc e. Approximately 1.1 liters of straw-colored fluid was removed. The patient was stable throughout the pr ocedure and remained stable upon discharge from Department of Radiology. IMPRESSION: Successful paracentesis under ultrasound guidance.
--- NOTE | 2022-03-05 10:16 | CDI ---
Documentation Clarification Form Date: 03/05/22 From: Sherie Ott Admit Date: 02/20/2022 05:30:00 PM Patient Name: Jesús Henriquez Visit Number: [id number] Discharge Date: 02/26/2022 10:25:00 AM ATTENTION: The Clinical Documentation Specialists (CDI) and [facility] Coding Staff appreciate your assistance in clarifying documentation. Please respond to the clarification below the line at the bottom and electronically sign. The CDI & [facility] Coding staff will review the response and follow-up if needed. Please note: Queries are made part of the Legal Health Record. If you have any questions, please contact the author of this message via ITS. Dr. Mali Kilgore, The final diagnosis of the pathology report states "Mesothelial cells, macrophages and mixed inflammatory cells. No cytologically malignant cells identified". Coding guidelines do not allow coding professionals to code based on pathology results; therefore, clarification is requested. History/risk factors: Met lung ca, COPD, HLD Clinical Indicators: Massive ascites with history of metastatic lung cancer not currently on treatment. Treatment: Paracentesis on 02/21 Please clarify if you agree with the pathology report diagnosis of no malignancy: [ X ] Yes [ ] No [ ] Other (please specify) [ ] Unable to determine MTDD
--- NOTE | 2022-03-14 10:43 | CDI ---
Documentation Clarification Form Date: 03/14/22 From: hSerie Ott Admit Date: 02/20/2022 05:30:00 PM Patient Name: Jesús Henriquez Visit Number: [id number] Discharge Date: 02/26/2022 10:25:00 AM ATTENTION: The Clinical Documentation Specialists (CDI) and [facility] Coding Staff appreciate your assistance in clarifying documentation. Please respond to the clarification below the line at the bottom and electronically sign. The CDI & [facility] Coding staff will review the response and follow-up if needed. Please note: Queries are made part of the Legal Health Record. If you have any questions, please contact the author of this message via ITS. Dr. Mali Kilgore, Malignant ascites is documented in the H&P PNs & DS which may lack sufficient clinical evidence/support in the medical record. Additional clarification is requested. History/Risk Factors: mets to right lung, hyponatremia, COPD, unspecified mets Clinical Indicators: Presents with massive ascites w hx of met lung cancer, not currently on treatment. Paracentesis did not reveal metastatic disease. Treatment: Paracentesis Please clarify if malignant ascites is a valid diagnosis? [ X] Yes, malignant ascites is present as evidence by (additional clinical support): _asicitic fluid not + for malignant cell but ascities is related to his malignancy [ ] No, malignant ascites is ruled out [ ] Other (please specify diagnosis) [ ] Unable to determine MTDD
== END 2022-02-26 10:25 | disposition hospice, home (50) | DRG 181 ==
LOC: EC 12:43 → 3SCARD 17:30
PROVIDERS: ADMIT Internal Medicine; ATTEND Internal Medicine
PROC: 0W9G3ZX Drainage of Peritoneal Cavity, Percutaneous Approach, Diagnostic (ICD-10-PCS; principal; 2022-02-21)
DX: C78.01 Secondary malignant neoplasm of right lung (principal); E87.1 Hypo-osmolality and hyponatremia; R18.0 Malignant ascites; J44.1 Chronic obstructive pulmonary disease with (acute) exacerbation; C79.9 Secondary malignant neoplasm of unspecified site; R04.2 Hemoptysis; E87.2 Acidosis; Z66 Do not resuscitate; Z51.5 Encounter for palliative care; E87.70 Fluid overload, unspecified; E87.6 Hypokalemia; E78.5 Hyperlipidemia, unspecified; E80.7 Disorder of bilirubin metabolism, unspecified; F12.11 Cannabis abuse, in remission; Z79.899 Other long term (current) drug therapy; Z85.118 Personal history of other malignant neoplasm of bronchus and lung; Z92.3 Personal history of irradiation; Z92.21 Personal history of antineoplastic chemotherapy; Z87.891 Personal history of nicotine dependence; Z87.39 Personal history of other diseases of the musculoskeletal system and connective tissue; Z87.81 Personal history of (healed) traumatic fracture; Z98.890 Other specified postprocedural states; Z83.3 Family history of diabetes mellitus; Z82.3 Family history of stroke; Z82.49 Family history of ischemic heart disease and other diseases of the circulatory system; Z80.9 Family history of malignant neoplasm, unspecified
CPT/HCPCS: 36415; 49083; 71046; 71250; 74176; 78306; 80048; 80053; 82150; 82945; 83605; 83615; 83880; 84157; 85025; 85610; 87070; 87075; 87205; 88108; 88305; 88341; 88342; 89050; 93005; 96360; 96361; 99285